=== PATIENT | male | born 1935 | race Caucasian/White ===

== ENCOUNTER 2017-06-10 18:01 | Inpatient (IN) | payer OTHER, MEDICARE ==
[~2017-06-10] VITALS: Ht 190.5 cm; Wt 100.7 kg
[2017-06-10 18:05] VITALS: BP 131/59
[2017-06-10 18:19] LABS: HEMATOCRIT 40.1 % (42.0-52.0); HEMOGLOBIN 13.3 gm/dL (14.0-18.0); MCH 28.6 pg (26.0-34.0); MCHC 33.1 g/dL (28.0-37.0); MCV 86.5 fL (80.0-100.0); MPV 7.2 fl. (7.2-11.1); NUCLEATED RBCS 0 /100WBC; PLATELET COUNT* 164 thou/uL (150-400); RBC 4.63 mil/uL (4.50-6.00); RDW-CV 15.7 % (10.5-14.5); WBC 7.8 thou/uL (4.0-11.0)
[2017-06-10 18:29] LABS: ANION GAP 8 mmol/L (7-16); APTT 29.9 Seconds (25.0-31.3); BUN 35 mg/dL (7-18); CALCIUM 9.2 mg/dL (8.5-10.1); CHLORIDE 105 mmol/L (98-107); CO2 29 mmol/L (21-32); CREATININE 1.4 mg/dL (0.6-1.3); GLUCOSE 156 mg/dL (70-99); INR 1.8; POTASSIUM 4.3 mmol/L (3.5-5.1); PROTIME 17.6 Seconds (9.20-11.50); SODIUM 142 mmol/L (136-145)
[2017-06-10 18:35] LABS: ALBUMIN 3.6 g/dL (3.4-5.0); ALKALINE PHOSPHATASE 47 U/L (46-116); LIPASE 891 U/L (73-393); SGOT 19 U/L (15-37); SGPT 17 U/L (30-65); TOTAL BILIRUBIN 1.7 mg/dL (<0.1-1.0); TOTAL PROTEIN 7.1 g/dL (6.4-8.2); TROPONIN-I LEVEL <0.06 ng/mL (<0.06)
[2017-06-10 18:47] LABS: ABSOLUTE EOSINOPHILS 0.3 thou/uL (0.0-0.7); ABSOLUTE LYMPHOCYTES 0.9 thou/uL (0.8-5.3); ABSOLUTE MONOCYTES 0.9 thou/uL (0.0-1.2); ABSOLUTE NEUTROPHILS 5.8 thou/uL (1.6-8.1); PLATELET ESTIMATE ADEQUATE
[2017-06-10] MEDS ORDERED: CARVEDILOL12.5 MG PO (19:44)
[2017-06-10] MEDS ORDERED: CHLORTHALIDONE25 MG PO (19:45)
[2017-06-10] MEDS ORDERED: NITROSTAT0.4 M1 SL (19:45)
[2017-06-10] MEDS ORDERED: SIMVASTATIN40 MG PO (19:46)
[2017-06-10] MEDS ORDERED: COUMADIN 4 MG TA4 M1 PO (19:48)
[2017-06-10] MEDS ORDERED: COUMADIN 5 MG TA5 M1 PO (19:49)
[2017-06-10] MEDS ORDERED: LISINOPRIL10 MG PO (19:50)
[2017-06-10 20:04] VITALS: BP 166/62
[2017-06-10 20:35] VITALS: BP 185/73
[2017-06-10 20:40] VITALS: BP 185/73
[2017-06-11] VITALS: BP 142/77
[2017-06-11 04:12] VITALS: BP 148/49
[2017-06-11 06:58] LABS: ABSOLUTE EOSINOPHILS 0.2 thou/uL (0.0-0.7); ABSOLUTE LYMPHOCYTES 0.5 thou/uL (0.8-5.3); ABSOLUTE MONOCYTES 0.9 thou/uL (0.0-1.2); ABSOLUTE NEUTROPHILS 4.9 thou/uL (1.6-8.1); BASOPHILS 0.4 %; EOSINOPHILS 2.5 %; HEMATOCRIT 37.3 % (42.0-52.0); HEMOGLOBIN 12.4 gm/dL (14.0-18.0); LYMPHOCYTES 7.4 %; MCH 28.8 pg (26.0-34.0); MCHC 33.1 g/dL (28.0-37.0); MCV 86.9 fL (80.0-100.0); MONOCYTES 13.6 %; MPV 7.3 fl. (7.2-11.1); NUCLEATED RBCS 0 /100WBC; PLATELET COUNT* 141 thou/uL (150-400); POLYS 76.1 %; RBC 4.29 mil/uL (4.50-6.00); RDW-CV 15.7 % (10.5-14.5); WBC 6.4 thou/uL (4.0-11.0)
[2017-06-11 07:04] LABS: CREATININE 1.6 mg/dL (0.6-1.3); POTASSIUM 4.3 mmol/L (3.5-5.1)
[2017-06-11 08:00] VITALS: BP 131/59
[2017-06-11 12:31] VITALS: BP 143/51
[2017-06-11 15:32] VITALS: BP 125/22
[2017-06-11 17:15] LABS: URINE BILIRUBIN NEGATIVE (Negative); URINE BLOOD 1+ (Negative); URINE CLARITY CLEAR; URINE COLOR YELLOW; URINE GLUCOSE-RANDOM NEGATIVE (Negative); URINE KETONES NEGATIVE (Negative); URINE LEUKOCYTES-REFLEX NEGATIVE (Negative); URINE NITRITE-REFLEX NEGATIVE (Negative); URINE PROTEIN NEGATIVE (Negative); URINE SPECIFIC GRAVITY >= 1.030 (1.005-1.030); URINE UROBILINOGEN 0.2 E.U./dl (0.2-1.0)
[2017-06-11 17:20] LABS: HYALINE CASTS >10 Many /LPF (None Seen); SQUAMOUS >10 Many /LPF (0-3)
[2017-06-11 17:21] LABS: CRYSTALS None Seen /LPF (None Seen); URINE RBC 3-10 Few /HPF (0-2); URINE WBC-REFLEX 0-5 Rare /HPF (0-5)
[2017-06-11 17:22] LABS: BACTERIA-REFLEX None Seen /HPF (None Seen); MUCUS >6 Heavy strn/LPF (None Seen)
[2017-06-11 20:00] VITALS: BP 135/47
[2017-06-12] VITALS: BP 125/44
[2017-06-12 04:00] VITALS: BP 108/54
[2017-06-12 05:42] LABS: HEMATOCRIT 34.4 % (42.0-52.0); HEMOGLOBIN 11.4 gm/dL (14.0-18.0); MCH 28.8 pg (26.0-34.0); MCHC 33.1 g/dL (28.0-37.0); MCV 87.3 fL (80.0-100.0); MPV 7.7 fl. (7.2-11.1); RBC 3.94 mil/uL (4.50-6.00); RDW-CV 15.7 % (10.5-14.5); WBC 5.7 thou/uL (4.0-11.0)
[2017-06-12 06:02] LABS: INR 2.1; PROTIME 20.7 Seconds (9.20-11.50)
[2017-06-12] MEDS ORDERED: IMDUR 30 MG TAB30 M1 PO (06:07)
[2017-06-12] MEDS ORDERED: ONGLYZA5 MG PO (06:09)
[2017-06-12 06:10] LABS: ANION GAP 9 mmol/L (7-16); BUN 39 mg/dL (7-18); CALCIUM 8.3 mg/dL (8.5-10.1); CHLORIDE 106 mmol/L (98-107); CO2 25 mmol/L (21-32); CREATININE 1.3 mg/dL (0.6-1.3); GLUCOSE 101 mg/dL (70-99); POTASSIUM 4.2 mmol/L (3.5-5.1); SODIUM 140 mmol/L (136-145)
[2017-06-12 06:22] LABS: CHOLESTEROL 137 mg/dL (<200); HDL CHOLESTEROL 35 mg/dL (>40); LDL CHOLESTEROL 84 mg/dL (<100); TC:HDL 3.9 Ratio (Not establshd); TRIGLYCERIDE 92 mg/dL (<150); VLDL 18 mg/dL (<40)
[2017-06-12 06:23] LABS: SERUM ASSESSMENT Clear
[2017-06-12 07:30] VITALS: BP 172/43
[2017-06-12 11:26] VITALS: BP 150/56
[2017-06-12 11:55] LABS: % SATURATION 13 % (20-39); IRON 31 ug/dL (50-175)
--- NOTE | 2017-06-12 15:55 | EKG ---
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 MCCABE : 1935 Requested By: Angel Luis Hernandez Order Number: [id number] MD: Bk Schmid Measurements Intervals [place] Rate: 47 P: [place]: QRS: 25 QRSD: 112 T: 78 QT: 498 QTc: 441 Interpretive Statements Atrial fibrillation Borderline intraventricular conduction delay Minimal ST depression, lateral leads No previous ECG available for comparison Electronically Signed On 06-12-2017 15:54:51 [employer] DEVELOPER by Bk Schmid [email or web address] <ELECTRONICALLY SIGNED> By: Francis Schmid MD, [facility] 06/12/17 1554 180 180 Francis Schmid MD, [facility] /EPI
[2017-06-12 16:04] VITALS: BP 155/46
[2017-06-12 20:00] VITALS: BP 159/47
[2017-06-13] VITALS (9 sets, daily range): BP systolic 121–195; BP diastolic 42–107
[2017-06-13 02:06] LABS: GLYCOHEMOGLOBIN (HGB A1C) 5.4 % (4.8-5.6)
[2017-06-13 05:32] LABS: PROTIME 19.7 Seconds (9.20-11.50)
--- NOTE | 2017-06-13 17:11 | 2DMMODE ---
[place] [address] 2 D/M-MODE ECHOCARDIOGRAM Name: LEENA SALINAS Room: [address] IN [facility]#: [id number] Admission: 06/10/17 Attend Phys: Kirsten Ramirez, Discharge: Date of : 33 Date of Service: 06/13/17 1711 Report #: [id number] THIS REPORT FOR: //name// APPROVED REPORT Study performed: 06/13/2017 13:24:37 EXAM: Comprehensive 2D, Doppler, and color-flow Echocardiogram Patient Location: In-Patient Room #: [facility] Status: routine BSA: 2.20 HR: 57 bpm BP: 165/52 mmHg Rhythm: Atrial Fibrillation Other Information Study Quality: Good Indications Atrial Fibrillation Syncope 2D Dimensions LVEF(%): 59.37 (>50%) IVSd: 14.11 (7-11mm) LVOT Diam: 21.40 (18-24mm) LVDd: 60.55 mm PWd: 11.08 (7-11mm) Ascending Ao: 37.14 (22-36mm) LVDs: 41.10 (25-40mm) Aortic Root: 38.05 mm Chung's LVEF: 59.37 % Volumes Left Atrial Volume (Systole) LA ESV Index: 37.50 mL/m2 Aortic Valve AoV Peak Andre.: 1.34 m/s AO Peak Gr.: 7.16 mmHg LVOT Max P.12 mmHg AO Mean Gr.: 3.98 mmHg LVOT Mean P.24 mmHg LVOT Max V: 0.73 m/s AO V2 VTI: 30.50 cm LVOT Mean V: 0.52 m/s CHANTEL (VTI): 2.16 cm2 LVOT V1 VTI: 18.30 [place] [address] 2 D/M-MODE ECHOCARDIOGRAM Name: LEENA SALINAS Room: [address] IN .R.#: [id number] Admission: 06/10/17 Attend Phys: Kirsten Ramirez, Discharge: Date of : 33 Date of Service: 06/13/17 1711 Report #: [id number] MV Decel. Time: 164.22 ms MV PHT: 47.62 ms MVA (PHT): 4.62 cm2 TDI Medial E' Andre.: 0.07 m/s Lateral E' Andre.: 0.11 m/s Pulmonary Valve PV Peak Andre.: 0.93 m/s PV Peak Gr.: 3.45 mmHg Left Ventricle The left ventricle is normal size. There is normal LV segmental wall motion. There is normal left ventricular wall thickness. Left ventricular systolic function is normal. The left ventricular ejection fraction is within the normal range. LVEF is 55%. This study is not technically sufficient to allow evaluation of the LV diastolic function due to atrial fibrillation. Right Ventricle The right ventricle is normal size. The right ventricular systolic function is normal. Atria Left atrium is mildly dilated. The right atrium size is normal. Aortic Valve The aortic prosthesis appears normal Mechanical aortic valve is present. No aortic regurgitation is present. There is no aortic valvular stenosis. Mitral Valve Mild mitral annular calcification. There is no mitral valve regurgitation noted. No evidence of mitral valve stenosis. Tricuspid Valve The tricuspid valve is normal in structure. Unable to assess PA pressure. Trace tricuspid regurgitation. Pulmonic Valve The pulmonary valve is normal in structure. Mild pulmonic regurgitation. Great Vessels The aortic root is normal in size. IVC [place] [address] 2 D/M-MODE ECHOCARDIOGRAM Name: LEENA SALINAS Room: [address] IN [facility]#: [id number] Admission: 06/10/17 Attend Phys: Kirsten Ramirez, Discharge: Date of : 33 Date of Service: 06/13/17 1711 Report #: [id number] collapses with >50% inspiration Pericardium There is no pericardial effusion. Left pleural effusion. <Conclusion> The left ventricle is normal size. There is normal left ventricular wall thickness. Left ventricular systolic function is normal. The left ventricular ejection fraction is within the normal range. LVEF is 55%. The right ventricle is normal size. Left atrium is mildly dilated. The aortic prosthesis appears normal There is no aortic valvular stenosis. Mild mitral annular calcification. There is no mitral valve regurgitation noted. No evidence of mitral valve stenosis. IVC is normal in size and collapses with >50% inspiration There is no pericardial effusion. There is normal LV segmental wall motion. <ELECTRONICALLY SIGNED> By: Boris Bhardwaj MD, FACC 06/13/17 171 10 10 Boris Bhardwaj MD, FACC /INF
--- NOTE | 2017-06-13 18:20 | CARDNUC ---
[place] [address] CARDIAC NUCLEAR IMAGING REPORT Name: LEENA SALINAS Room: [address] IN [facility]#: [id number] Admission: 06/10/17 Attend Phys: Kirsten Ramirez, Discharge: Date of : 33 Date of Service: 06/13/17 1819 Report #: [id number] THIS REPORT FOR: //name// APPROVED REPORT Exam: Nuclear Stress Test Indication: Syncope Patient Location: In-Patient Room #: 205 Stress Tech: Anne Mendez Stress Nurse: Yoli Cali RN Ht: 6 ft 3 in Wt: 228 lbs BSA: 2.32 m2 BMI: 28.49 Medical History Medical History: CAD s/p CABG, CAD s/p stent, Valvular heart disease, Atrial Fibrillation, COPD Medications: asa, warfarin, atorvastatin, coreg, hydralazine, isosorbide, nifedipine, lisinopril Allergies: morphine, promethazine, meperidine Cardiac Risk Factors: Age, DM, HTN, Hyperlipidemia Previous Cardiac Procedures: CABG, AVR, PCI Exercise History: Sedentary Meds Held (24 hrs): isosorbide Meds Held (48 hrs): coreg Stress Test Details Stress Test: Pharmacologic stress testing performed using 0.4 mg of regadenoson per 5 mL given IV over 10 seconds. Reason for pharmacologic stress test: physical limitation. HR Resting HR: 65 bpm Max Heart Rate (APMHR): 138 bpm Max HR Achieved: 84 bpm Target HR (85% APMHR): 117 bpm % of APMHR: 60 Recovery HR: 74 bpm BP Resting BP: 152/64 mmHg Max BP: 138/54 mmHg ECG Resting ECG: Atrial Fibrillation Stress ECG: [place] [address] CARDIAC NUCLEAR IMAGING REPORT Name: LEENA SALINAS Room: [address]#: [id number] Admission: 06/10/17 Attend Phys: Kirsten Ramirez, Discharge: Date of : 33 Date of Service: 06/13/17 1819 Report #: [id number] Change: None Arrhythmia: None Recovery ECG: Atrial Fibrillation Recovery ST Change: None Recovery Arrhythmia: None Clinical Reason for Termination: Completed protocol Stress Symptoms: Chest pain Exercise duration: 0 min sec Exercise capacity: 1.0 METs The patient had mild chest pressure with Lexiscan infusion that resolved in recovery. Nurse Comments Patient complained of chest pressure post lexiscan, rated 9, resolved in recovery. Stress ECG Conclusion The baseline 12-lead EKG shows atrial fibrillation with a controlled ventricular response rate. EKGs obtained during and post Lexiscan infusion show atrial fibrillation with no significant ST or T wave changes when compared to baseline. There were no other stress-induced arrhythmias. NM EXAM: Myocardial Perfusion REST/STRESS Imaging Protocol: Rest Tc-99m/Stress Tc-99m 1 day Resting Data Rest SPECT myocardial perfusion imaging was performed in supine position 30 minutes following the intravenous injection of 10.7 mCi of Tc-99m Sestamibi. Time of rest injection: 1325 Time of rest imagin The images were gated to evaluate regional wall motion and calculate left ventricular ejection fraction. Administration Route: IV Administration Site: Left AC Pharmacologic Stress Pharmacologic stress test was performed by injecting Regadenoson 0.4 mg IV push followed by the intravenous injection of 31.6 mCi of Tc-99m Sestamibi. Time of stress injection: 1600 Time of stress imagin Administration Route: [place] [address] CARDIAC NUCLEAR IMAGING REPORT Name: LEENA SALINAS Room: [address]#: [id number] Admission: 06/10/17 Attend Phys: Kirsten Ramirez, Discharge: Date of : 33 Date of Service: 06/13/17 1819 Report #: [id number] Administration Site: Left AC Heart Rate at time of stress injection: 84 bpm. Gated Stress SPECT was performed 40 minutes after stress injection. The images were gated to evaluate regional wall motion and calculate left ventricular ejection fraction. Study Quality Study: Good Artifact: No artifact Study Data At rest, the left ventricular ejection fraction was 61%.. Post stress, the left ventricular ejection was 59%.. TID = 0.97. Perfusion There is a moderate size fixed basal inferior defect. No other significant defects are identified. Wall Motion The basal portion the inferior wall is severely hypokinetic. Remaining jc appear to move normally. Nuclear Conclusion ECG Findings: negative for ischemia Clinical Findings: equivocal Nuclear Findings: negative for ischemia Exercise Capacity: not assessed Left Ventricular Function: preserved There is a fixed defect involving the basal portion the inferior wall consistent with prior infarct. Ears no evidence of stress-induced ischemia. Overall left ventricular systolic function appears to be fairly well-preserved. This is not a high risk study. <Conclusion> The baseline 12-lead EKG shows atrial fibrillation with a controlled ventricular response rate. EKGs obtained during and post Lexiscan infusion show atrial fibrillation with no significant ST or T wave changes when compared to baseline. There were no other stress-induced arrhythmias. <ELECTRONICALLY SIGNED> By: Juan Ramirez MD, FACC 06/13/171818 18 18 Juan Ramirez MD, FACC /INF
[2017-06-14 03:43] VITALS: BP 126/36
[2017-06-14 06:07] LABS: INR 2.1; PROTIME 20.4 Seconds (9.20-11.50)
[2017-06-14 08:00] VITALS: BP 145/54
[2017-06-14] MEDS ORDERED: IRON325 PO (08:20)
[2017-06-14] MEDS ORDERED: PROCARDIA XL60 MG PO (08:21)
[2017-06-14] MEDS ORDERED: LEVAQUIN 500 M500 M2 PO (08:22)
[2017-06-14 11:30] VITALS: BP 133/70
--- NOTE | 2017-06-14 15:01 | CON ---
[address] [address] CONSULTATION Name: LEENA SALINAS Room: [address] IN M.R.#: [id number] Admission: 06/10/17 Attend Phys: Kirsten Ramirez MD Discharge: Date of : 33 Report #: [id number] THIS REPORT FOR: //name// CC: [facility] physician/PCP Kirsten Ramirez HISTORY OF PRESENT ILLNESS: I was asked by Dr. Kirsten Ramirez to see this 81-year-old white male in Cardiology consultation for evaluation and treatment of syncope. This man has chronic atrial fibrillation. He came in having passed out in his kitchen. He was only out for a few seconds and got up fairly quickly according to his . There was no prodrome. He was not incontinent of stool or urine. He has been noted to be quite bradycardic since he had this event with heart rates in the 40s. He is on a substantial dose of beta-shekhar that is Coreg 12.5 mg twice a day. The Coreg has been held and his heart rate seems to be coming up a bit. Additionally, this man has known coronary artery disease, is status post 4 coronary stents. I believe that was in 2014 at [facility]. He had bypass graft surgery and previous aortic valve replacement in [address] [facility] [address] Patel. He used to see Dr. Whittington there. 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 He did not have any chest pain with this event. He did not feel palpitations. He generally has some dyspnea on exertion, but not orthopnea, PND or edema. He has passed out in the past he says due to low blood sugar. He is on saxagliptin. His coronary risk factors include past history of smoking. He no longer smokes. He denies hypercholesterolemia, although he is on a statin. He does have diabetes. He does have high blood pressures, family history of coronary heart disease. He does not have kidney problems or problems with his carotids. He does not have claudication or open or nonhealing wounds. Also, he does have a history of kidney stones. PAST MEDICAL HISTORY: As described above. MEDICATIONS: Include carvedilol 12.5 mg twice a day, chlorthalidone 25 mg twice a day, lisinopril either 10 or 20 mg daily, it is not clear. He also takes p.r.n. nitroglycerin. He is on warfarin 6 mg daily, simvastatin 40 mg daily and isosorbide 30 mg daily. ALLERGIES: HE IS ALLERGIC TO MORPHINE, PROMETHAZINE AND DEMEROL. REVIEW OF SYSTEMS: Positive for weight loss, erectile dysfunction, emphysema, chest discomfort, shortness of breath with exercise, nearly passing out, history of a heart murmur, diabetes, blood in the stool, painful burning urination, blood in the urine, bleeding disorder, seasonal allergies, medical allergies, rash, hives, chronic skin condition, wears glasses, decreased hearing, bleeding from the nose and wearing dentures. SOCIAL HISTORY: He is , does not smoke, drink or [place] [address] CONSULTATION Name: LEENA SALINAS Room: [address] IN ..#: [id number] Admission: 06/10/17 Attend Phys: Kirsten Ramirez MD Discharge: Date of : 33 Report #: [id number] is retired. PHYSICAL EXAMINATION: GENERAL: He presents as a well-developed, well-nourished white male in no acute distress. VITAL SIGNS: Pulse was about 48 when I examined him. Blood pressure is 140/49, respirations are 18 and regular, temperature is 97.7. HEENT: His head is atraumatic. Eyes clear. Mucous membranes are moist. NECK: Supple. There is no jugular venous distention or hepatojugular reflux. Thyroid is not enlarged. There is no adenopathy. SKIN: Warm and dry. LUNGS: Clear to auscultation and percussion. HEART: Revealed normal first and second heart sound. There is no S4. There is no S3. There are no murmurs, rubs, thrills, heaves or gallops. PMI is nondisplaced. Rhythm was irregularly irregular, rate was approximately 48. PMI is not displaced. ABDOMEN: Soft, flat, nontender, no palpable masses. There is no organomegaly. EXTREMITIES: Reveal no cyanosis, clubbing or edema. NEUROLOGIC: The patient mentated normally, talked normally, moved all extremities normally. IMPRESSION: 1. Syncope. This is likely secondary to bradycardia and hypotension due to his beta-shekhar. 2. Atrial fibrillation with a slow ventricular response. 3. Coronary artery disease. 4. Status post 4 coronary stents. 5. Status post coronary bypass graft surgery. 6. Status post aortic valve replacement. 7. Asbestosis. 8. Chronic obstructive pulmonary disease. 9. Non-insulin dependent diabetes mellitus. 10. Essential hypertension. 11. Hyperlipidemia. RECOMMENDATION: He should have an echo, carotid Dopplers and a nuclear stress test. He should have his beta-shekhar reduced and his warfarin adjusted. If his heart rate does not come up in spite of marked decrease in his beta-shekhar or stopping his beta-shekhar, then consideration for pacemaker [place] [address] CONSULTATION Name: LEENA SALINAS Room: [address] ADM IN M.R.#: [id number] Admission: 06/10/17 Attend Phys: Kirsten Ramirez MD Discharge: Date of : 34 Report #: [id number] Thank you very much for asking me to see the patient. If any questions, please feel free to contact me. <ELECTRONICALLY SIGNED> By: Francis Schmid MD, FACC 06/14/17 1501 1244 [id number]. Bk Schmid MD, FACC /nt
[2017-06-14 15:30] VITALS: BP 146/58
[2017-06-14 18:01] VITALS: BP 133/70
== END 2017-06-14 19:00 | disposition home or self-care (01) | DRG 682 ==
LOC: M.ERS 18:01 → M.TBA-ER 18:40 → M.2W 18:40
PROVIDERS: Family Medicine; Internal Medicine; ADMIT Internal Medicine
DX: N17.1 Acute kidney failure with acute cortical necrosis (principal); J13 Pneumonia due to Streptococcus pneumoniae; I65.29 Occlusion and stenosis of unspecified carotid artery; R00.1 Bradycardia, unspecified; I48.91 Unspecified atrial fibrillation; G89.29 Other chronic pain; J44.9 Chronic obstructive pulmonary disease, unspecified; M48.00 Spinal stenosis, site unspecified; D64.9 Anemia, unspecified; E78.5 Hyperlipidemia, unspecified; E11.22 Type 2 diabetes mellitus with diabetic chronic kidney disease; I25.10 Atherosclerotic heart disease of native coronary artery without angina pectoris; I12.9 Hypertensive chronic kidney disease with stage 1 through stage 4 chronic kidney disease, or unspecified chronic kidney disease; F17.210 Nicotine dependence, cigarettes, uncomplicated; Y99.8 Other external cause status; Y92.89 Other specified places as the place of occurrence of the external cause; Y93.89 Activity, other specified; X58.XXXA Exposure to other specified factors, initial encounter; S00.01XA Abrasion of scalp, initial encounter; J61 Pneumoconiosis due to asbestos and other mineral fibers; N18.3 Chronic kidney disease, stage 3 (moderate); Z88.8 Allergy status to other drugs, medicaments and biological substances; Z79.01 Long term (current) use of anticoagulants; Z95.1 Presence of aortocoronary bypass graft; Z87.442 Personal history of urinary calculi; Z95.5 Presence of coronary angioplasty implant and graft; Z79.4 Long term (current) use of insulin

== ENCOUNTER 2019-08-15 13:47 | Emergency (ER) | payer OTHER ==
[~2019-08-15] VITALS: Ht 190.5 cm; Wt 81.7 kg
[~2019-08-15 13:47] MED LIST: CARVEDILOL12.5 MG PO; CHLORTHALIDONE25 MG PO; COUMADIN 4 MG TA4 M1 PO; COUMADIN 5 MG TA5 M1 PO; IMDUR 30 MG TAB30 M1 PO; IRON325 PO; LEVAQUIN 500 M500 M2 PO; LISINOPRIL10 MG PO; NITROSTAT0.4 M1 SL; ONGLYZA5 MG PO; PROCARDIA XL60 MG PO; SIMVASTATIN40 MG PO
[2019-08-15] MEDS ORDERED: COUMADIN7.5 MG PO (14:18)
[2019-08-15] MEDS ORDERED: CRESTOR5 MG PO (14:19)
[2019-08-15] MEDS ORDERED: ALOGLIPTIN25 MG PO (14:20)
[2019-08-15 14:59] LABS: ABSOLUTE EOSINOPHILS 0.1 thou/uL (0.0-0.7); ABSOLUTE LYMPHOCYTES 0.4 thou/uL (0.8-5.3); ABSOLUTE MONOCYTES 0.4 thou/uL (0.0-1.2); BASOPHILS 0.8 %; EOSINOPHILS 2.8 %; HEMATOCRIT 34.6 % (42.0-52.0); HEMOGLOBIN 11.7 gm/dL (14.0-18.0); LYMPHOCYTES 13.6 %; MCHC 33.9 g/dL (28.0-37.0); MCV 82.7 fL (80.0-100.0); MONOCYTES 14.3 %; MPV 7.2 fl. (7.2-11.1); NUCLEATED RBCS 0 /100WBC; PLATELET COUNT* 141 thou/uL (150-400); POLYS 68.5 %; RBC 4.18 mil/uL (4.50-6.00); RDW-CV 15.9 % (10.5-14.5); WBC 2.9 thou/uL (4.0-11.0)
[2019-08-15 15:07] LABS: CALCIUM 8.1 mg/dL (8.5-10.1); POTASSIUM 4.5 mmol/L (3.5-5.1)
[2019-08-15 15:11] LABS: ALBUMIN 3.2 g/dL (3.4-5.0); MAGNESIUM 1.9 mg/dL (1.8-2.4); TOTAL BILIRUBIN 1.3 mg/dL (<0.1-1.0); TOTAL PROTEIN 6.3 g/dL (6.4-8.2)
[2019-08-15 15:56] LABS: URINE BILIRUBIN NEGATIVE (Negative); URINE BLOOD NEGATIVE (Negative); URINE CLARITY CLEAR; URINE COLOR YELLOW; URINE GLUCOSE-RANDOM NEGATIVE (Negative); URINE KETONES NEGATIVE (Negative); URINE LEUKOCYTES-REFLEX NEGATIVE (Negative); URINE NITRITE-REFLEX NEGATIVE (Negative); URINE PROTEIN TRACE (Negative); URINE SPECIFIC GRAVITY 1.015 (1.005-1.030)
--- NOTE | 2019-08-15 15:57 | EKG ---
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1935 Requested By: Lesley Gutierrez Order Number: [id number] Reading MD: Jesús Whittington Measurements Intervals [place] Rate: 92 P: [place]: QRS: 26 QRSD: 106 T: 82 QT: 402 QTc: 498 Interpretive Statements Atrial fibrillation Ventricular bigeminy Minimal ST depression, lateral leads Compared to ECG 06/10/2017 18:06:40 Ventricular premature complex(es) now present ST (T wave) deviation still present Electronically Signed On 08-15-2019 15:56:29 CDT by Jesús Whittington [email or web address] <ELECTRONICALLY SIGNED> By: Jesús Whittington MD, FACC 08/15/19 1556 1351 1351 Jesús Whittington MD, [facility] /EPI
[2019-08-15 17:45] VITALS: BP 162/74
== END 2019-08-15 17:45 | disposition home or self-care (01) ==
LOC: M.ERS 13:47
PROVIDERS: Personal Emergency Response Attendant
DX: R53.1 Weakness (principal); R00.1 Bradycardia, unspecified; R42 Dizziness and giddiness; E78.5 Hyperlipidemia, unspecified; I25.10 Atherosclerotic heart disease of native coronary artery without angina pectoris; I10 Essential (primary) hypertension; Z87.891 Personal history of nicotine dependence; Z88.5 Allergy status to narcotic agent; Z88.8 Allergy status to other drugs, medicaments and biological substances; Z87.442 Personal history of urinary calculi

== ENCOUNTER 2019-11-21 10:36 | Emergency (ER) | payer OTHER ==
[~2019-11-21] VITALS: Ht 190.5 cm; Wt 79.4 kg
[~2019-11-21 10:36] MED LIST changes: +ALOGLIPTIN25 MG PO; +COUMADIN7.5 MG PO; +CRESTOR5 MG PO
[2019-11-21] MEDS ORDERED: HYDROCHLOROTHIA25 M2 PO (10:47)
[2019-11-21 11:00] LABS: ABSOLUTE EOSINOPHILS 0.1 thou/uL (0.0-0.7); ABSOLUTE LYMPHOCYTES 0.4 thou/uL (0.8-5.3); ABSOLUTE MONOCYTES 0.6 thou/uL (0.0-1.2); ABSOLUTE NEUTROPHILS 4.2 thou/uL (1.6-8.1); BASOPHILS 0.8 %; EOSINOPHILS 1.9 %; HEMATOCRIT 34.2 % (42.0-52.0); HEMOGLOBIN 11.2 gm/dL (14.0-18.0); MCH 26.3 pg (26.0-34.0); MCHC 32.9 g/dL (28.0-37.0); MONOCYTES 11.6 %; MPV 6.6 fl. (7.2-11.1); NUCLEATED RBCS 0 /100WBC; PLATELET COUNT* 181 thou/uL (150-400); POLYS 78.7 %; RBC 4.28 mil/uL (4.50-6.00); RDW-CV 16.7 % (10.5-14.5); WBC 5.4 thou/uL (4.0-11.0)
[2019-11-21 11:11] LABS: CALCIUM 8.3 mg/dL (8.5-10.1); POTASSIUM 3.9 mmol/L (3.5-5.1)
[2019-11-21 11:13] LABS: APTT 38.3 Seconds (25.0-31.3); INR 3.1; PROTIME 30.3 Seconds (9.20-11.50)
[2019-11-21 11:16] LABS: ALBUMIN 3.3 g/dL (3.4-5.0); TOTAL PROTEIN 6.9 g/dL (6.4-8.2)
[2019-11-21 13:25] VITALS: BP 213/78
== END 2019-11-21 13:18 | disposition home or self-care (01) ==
LOC: M.ERS 10:36
PROVIDERS: Family Medicine
DX: S00.83XA Contusion of other part of head, initial encounter (principal); S20.411A Abrasion of right back wall of thorax, initial encounter; M25.562 Pain in left knee; M25.561 Pain in right knee; I10 Essential (primary) hypertension; E78.5 Hyperlipidemia, unspecified; M19.90 Unspecified osteoarthritis, unspecified site; Z87.442 Personal history of urinary calculi; Z90.49 Acquired absence of other specified parts of digestive tract; Z87.891 Personal history of nicotine dependence; Z88.6 Allergy status to analgesic agent; Z88.8 Allergy status to other drugs, medicaments and biological substances; W01.0XXA Fall on same level from slipping, tripping and stumbling without subsequent striking against object, initial encounter; Y93.9 Activity, unspecified; Y92.89 Other specified places as the place of occurrence of the external cause; Y99.8 Other external cause status

== ENCOUNTER 2020-03-24 15:59 | Inpatient (IN) | payer OTHER ==
[~2020-03-24] VITALS: Ht 190.5 cm; Wt 72.0 kg
[~2020-03-24 15:59] MED LIST changes: +HYDROCHLOROTHIA25 M2 PO
[2020-03-24 16:05] VITALS: BP 161/70
[2020-03-24 17:00] LABS: HEMOGLOBIN 12.6 gm/dL (14.0-18.0); MCH 25.7 pg (26.0-34.0); MCHC 32.3 g/dL (28.0-37.0); MCV 79.4 fL (80.0-100.0); MPV 7.5 fl. (7.2-11.1); NUCLEATED RBCS 0 /100WBC; PLATELET COUNT* 123 thou/uL (150-400); RBC 4.91 mil/uL (4.50-6.00); RDW-CV 16.5 % (10.5-14.5); WBC 9.3 thou/uL (4.0-11.0)
[2020-03-24 17:08] LABS: CALCIUM 8.3 mg/dL (8.5-10.1); CREATININE 1.2 mg/dL (0.6-1.3); POTASSIUM 3.6 mmol/L (3.5-5.1)
[2020-03-24 17:13] LABS: ALBUMIN 2.8 g/dL (3.4-5.0); TOTAL BILIRUBIN 1.2 mg/dL (<0.1-1.0); TOTAL PROTEIN 6.8 g/dL (6.4-8.2)
[2020-03-24 17:38] LABS: ABSOLUTE LYMPHOCYTES 0.3 thou/uL (0.8-5.3); ABSOLUTE MONOCYTES 0.4 thou/uL (0.0-1.2); ABSOLUTE NEUTROPHILS 8.6 thou/uL (1.6-8.1); ANISOCYTOSIS 1+; OVALOCYTES Occasional; PLATELET ESTIMATE ADEQUATE
[2020-03-24 18:50] LABS: APTT 42.5 Seconds (25.0-31.3); INR 2.7; PROTIME 27.1 Seconds (9.20-11.50)
[2020-03-24 20:00] VITALS: BP 129/55; BP 148/89
[2020-03-25] VITALS: BP 158/56
[2020-03-25 04:00] VITALS: BP 173/71
--- NOTE | 2020-03-25 09:15 | NUR ---
CM ATTEMPTED TO CONTACT THE PT VIA THE HOSPITAL ROOM PHONE TO DISCUSS CM ASSESSMENT, THE PT IS CURRENTLY UNDER ENHANCED PRECAUTIONS DUE TO BEING COVID POSITIVE. NO ANSWER. CM CONTACTED PT'S SPOUSE AND SHE ASSIST WITH ANSWERING CM ASSESSMENT. PT'S SPOUSE INFORMS THAT THE PT IS NORMALLY A&O, AND INDEPENDENT WITH ADL'S. PT RESIDES AT HOME WITH SPOUSE AND DON. PT OWNS A WALKER AND CANE, BUT DID NOT USE EITHER PRIOR TO ADMIT. PT HAS 0 HX OF HH OR SNF. CM WILL REMAIN AVAILABLE TO ASSIST WITH D/C PLANNING.
[2020-03-25 12:00] VITALS: BP 146/87
[2020-03-25 16:00] VITALS: BP 198/76
[2020-03-26] VITALS: BP 156/77
[2020-03-26 04:30] VITALS: BP 185/77
[2020-03-26 05:39] LABS: ABSOLUTE LYMPHOCYTES 0.1 thou/uL (0.8-5.3); ABSOLUTE MONOCYTES 0.1 thou/uL (0.0-1.2); BASOPHILS 0.2 %; HEMATOCRIT 35.2 % (42.0-52.0); HEMOGLOBIN 11.4 gm/dL (14.0-18.0); LYMPHOCYTES 5.8 %; MCHC 32.4 g/dL (28.0-37.0); MCV 80.1 fL (80.0-100.0); MPV 7.5 fl. (7.2-11.1); NUCLEATED RBCS 0 /100WBC; PLATELET COUNT* 115 thou/uL (150-400); RBC 4.39 mil/uL (4.50-6.00); RDW-CV 16.1 % (10.5-14.5); WBC 2.3 thou/uL (4.0-11.0)
[2020-03-26 05:49] LABS: INR 3.6; PROTIME 35.2 Seconds (9.20-11.50)
[2020-03-26 05:55] LABS: ALBUMIN 2.5 g/dL (3.4-5.0); ALKALINE PHOSPHATASE 36 U/L (46-116); ANION GAP 12 mmol/L (7-16); BUN 40 mg/dL (7-18); CHLORIDE 106 mmol/L (98-107); CO2 24 mmol/L (21-32); CREATININE 1.1 mg/dL (0.6-1.3); GLUCOSE 211 mg/dL (70-99); POTASSIUM 3.7 mmol/L (3.5-5.1); SGOT 30 U/L (15-37); SGPT 22 U/L (30-65); SODIUM 142 mmol/L (136-145); TOTAL BILIRUBIN 0.8 mg/dL (<0.1-1.0); TOTAL PROTEIN 6.3 g/dL (6.4-8.2); TROPONIN-I LEVEL <0.06 ng/mL (<0.06)
--- NOTE | 2020-03-26 07:32 | NUR ---
PATIENT HAS SLEPT WELL THROUGHOUT THE NIGHT. VSS ON 2L 02, ALTHOUGH BP ELEVATED AND BLOOD PRESSURE MEDICATION GIVEN THIS AM VIA IV. PATIENT UP SBA. PATIENT REMAINS ON ENHANCED ISOLATION PRECAUTIONS D/T COVID-19. MEDICATIONS GIVEN ORDERED AND CHARTED. IV IN LEFT FOREARM-SL. PATIENT INSTRUCTED TO USE CALL LIGHT WHEN NEEDING ASSISTANCE. HOURLY ROUNDS MADE. WILL CONTINUE WITH PLAN OF CARE AND NURSING TO MONITOR.
[2020-03-26 08:04] VITALS: BP 159/50
--- NOTE | 2020-03-26 09:29 | NUR ---
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 PLACE ORDERED, TRACING A-FIB- UPON ASSESSMENT PT NOTED TO BE RESTING IN BED- PT A&O X4, FORGETFULL- CONT OF B/B- SBA WITH CANE FOR TRANSFERS- LCTA/DIMISHED IN BASES, DYSPNEA NOTED ON EXERTION- VSS, O2 SAT NOTED AT 87-88, O2 APPLIED AT 3L TO INCREASE TO 90-91% THIS AM- ABD SOFT/ROUND/NON-TENDER, BS X4 QUADS- LAST BM REPORTED X3 DAYS AGO- IV NOTED TO LEFT FA INTACT AND SL- SET UP ASSIST WITH MEALS, FAIR PO INTAKE NOTED THIS AM- BS MONITORED ORDERED- PT DENIES ANY C/O PAIN/DISCOMFORT AT THIS TIME- CALL LIGHT AND PERSONAL BELONGINGS WITH IN REACH- ISO IN PLACE AND MAINTAINED R/T POSITIVE COVID- HOURLY ROUNDS IN PLACE R/T SAFETY/NEEDS- ALL NEEDS MET AT THIS TIME-WCTM
[2020-03-26 12:00] VITALS: BP 155/60
[2020-03-26 12:06] LABS: HEMATOCRIT 35.5 % (42.0-52.0); HEMOGLOBIN 11.4 gm/dL (14.0-18.0); MCH 25.6 pg (26.0-34.0); MCHC 32.1 g/dL (28.0-37.0); MCV 79.6 fL (80.0-100.0); MPV 7.7 fl. (7.2-11.1); RBC 4.46 mil/uL (4.50-6.00); RDW-CV 16.1 % (10.5-14.5); WBC 3.8 thou/uL (4.0-11.0)
--- NOTE | 2020-03-26 13:35 | 2DMMODE ---
[place] [address] 2 D/M-MODE ECHOCARDIOGRAM Name: LEENA SALINAS Room: [address] IN .R.#: [id number] Admission: 03/24/20 Attend Phys: Germain Dillon, Discharge: Date of : 33 Date of Service: 03/26/20 1334 Report #: [id number] THIS REPORT FOR: cc: Val Zepeda MD, Avan D. MD Holkins,Boris Loera MD [facility] ~ APPROVED REPORT Study performed: 03/26/2020 09:34:54 EXAM: Comprehensive 2D, Doppler, and color-flow Echocardiogram Patient Location: Bedside BSA: 1.96 HR: 72 bpm BP: 173/71 mmHg Other Information Study Quality: Adequate Indications Aortic Valve Disease Prosthetic Valve Atrial Fibrillation CAD Elevated Troponin Covid Positive 2D Dimensions IVSd: 15.46 (7-11mm) LVOT Diam: 15.67 (18-24mm) LVDd: 39.44 mm PWd: 10.72 (7-11mm) Ascending Ao: 34.95 (22-36mm) LVDs: 23.42 (25-40mm) Aortic Root: 35.49 mm Volumes Left Atrial Volume (Systole) LA ESV Index: 42.50 mL/m2 Aortic Valve AoV Peak Andre.: 1.22 m/s AO Peak Gr.: 5.98 mmHg LVOT Max P.69 mmHg AO Mean Gr.: 3.61 mmHg LVOT Mean P.98 mmHg LVOT Max V: 0.96 m/s [address] [address] 2 D/M-MODE ECHOCARDIOGRAM Name: LEENA SALINAS Room: [address]#: [id number] Admission: 03/24/20 Attend Phys: Germain Dillon, Discharge: Date of : 33 Date of Service: 03/26/20 1334 Report #: [id number] AO V2 VTI: 26.54 cm LVOT Mean V: 0.63 m/s CHANTEL (VTI): 1.27 cm2 LVOT V1 VTI: 17.45 cm Mitral Valve E/A Ratio: 3.00 MV Decel. Time: 187.19 ms MV E Max Andre.: 1.00 m/s MV PHT: 54.28 ms MVA (PHT): 4.05 cm2 Pulmonary Valve PV Peak Andre.: 1.03 m/s PV Peak Gr.: 4.22 mmHg Left Ventricle The left ventricle is normal size. There is normal LV segmental wall motion. There is normal left ventricular wall thickness. Left ventricular systolic function is normal. The left ventricular ejection fraction is within the normal range. LVEF is 55%. This study is not technically sufficient to allow evaluation of the LV diastolic function due to atrial fibrillation. Right Ventricle The right ventricle is normal size. The right ventricular systolic function is normal. Atria Left atrium is moderately dilated. The right atrium size is normal. Aortic Valve Mild aortic valve sclerosis. Mechanical aortic valve is present. No aortic regurgitation is present. No hemodynamically significant valvular aortic stenosis. Mitral Valve Moderate mitral annular calcification. There is no mitral valve regurgitation noted. No evidence of mitral valve stenosis. Tricuspid Valve The tricuspid valve is normal in structure. There is no tricuspid valve regurgitation noted. Pulmonic Valve The pulmonary valve is normal in structure. There is no pulmonic [place] [address] 2 D/M-MODE ECHOCARDIOGRAM Name: LEENA SALINAS Room: [address] IN [facility].#: [id number] Admission: 03/24/20 Attend Phys: Germain Dillon, Discharge: Date of : 33 Date of Service: 03/26/20 1334 Report #: [id number] Great Vessels The aortic root is normal in size. Aortic arch is not visualized. IVC is not visualized. Pericardium There is no pericardial effusion. Pleural effusion is present. <Conclusion> There is normal left ventricular wall thickness. Left ventricular systolic function is normal. The left ventricular ejection fraction is within the normal range. LVEF is 55%. This study is not technically sufficient to allow evaluation of the LV diastolic function due to atrial fibrillation. The right ventricle is normal size. Left atrium is moderately dilated. Mild aortic valve sclerosis. No aortic regurgitation is present. No hemodynamically significant valvular aortic stenosis. Moderate mitral annular calcification. There is no mitral valve regurgitation noted. No evidence of mitral valve stenosis. The tricuspid valve is normal in structure. There is no pericardial effusion. There is normal LV segmental wall motion. Mechanical aortic valve is present. <ELECTRONICALLY SIGNED> By: Boris Bhardwaj MD, FACC 03/26/20 1334 1334 1334 Boris Bhardwaj MD, FACC /INF
--- NOTE | 2020-03-26 13:38 | EKG ---
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1935 Requested By: Ekaterina Malave Order Number: [id number] MD: Boris Bhardwaj Measurements Intervals [place] Rate: 65 P: [place]: QRS: 41 QRSD: 107 T: 71 QT: 412 QTc: 429 Interpretive Statements Atrial fibrillation Ventricular premature complex Probable LVH with secondary repol abnrm Compared to ECG 08/15/2019 13:51:05 ST (T wave) deviation no longer present Electronically Signed On 03-26-2020 13:38:09 CDT by Boris Bhardwaj [email or web address] <ELECTRONICALLY SIGNED> By: Boris Bhardwaj MD, FACC 03/26/20 1338 1648 Boris Bhardwaj MD, FACC /EPI
[2020-03-26 16:00] VITALS: BP 167/76
[2020-03-26 21:30] VITALS: BP 165/71
[2020-03-27] VITALS (7 sets, daily range): BP systolic 151–178; BP diastolic 55–76
[2020-03-27 05:32] LABS: ABSOLUTE LYMPHOCYTES 0.2 thou/uL (0.8-5.3); ABSOLUTE MONOCYTES 0.2 thou/uL (0.0-1.2); BASOPHILS 0.1 %; HEMATOCRIT 34.8 % (42.0-52.0); HEMOGLOBIN 11.6 gm/dL (14.0-18.0); MCH 26.2 pg (26.0-34.0); MCHC 33.4 g/dL (28.0-37.0); MCV 78.6 fL (80.0-100.0); MONOCYTES 3.8 %; MPV 7.7 fl. (7.2-11.1); NUCLEATED RBCS 0 /100WBC; PLATELET COUNT* 168 thou/uL (150-400); POLYS 93.1 %; RBC 4.43 mil/uL (4.50-6.00); RDW-CV 16.2 % (10.5-14.5); WBC 5.4 thou/uL (4.0-11.0)
[2020-03-27 05:33] LABS: INR 3.7; PROTIME 35.7 Seconds (9.20-11.50)
[2020-03-27 05:45] LABS: ALBUMIN 2.6 g/dL (3.4-5.0); CALCIUM 7.9 mg/dL (8.5-10.1); CREATININE 1.1 mg/dL (0.6-1.3); MAGNESIUM 2.2 mg/dL (1.8-2.4); POTASSIUM 3.7 mmol/L (3.5-5.1); TOTAL BILIRUBIN 0.7 mg/dL (<0.1-1.0); TOTAL PROTEIN 6.2 g/dL (6.4-8.2)
[2020-03-27 06:06] LABS: GLYCOHEMOGLOBIN (HGB A1C) 5.9 % (4.8-5.6)
--- NOTE | 2020-03-27 15:46 | NUR ---
CM INFORMED DURING PRIME ROUNDING OF THE PLAN OF CARE FOR THE PT INCLUDING PLAN FOR THE PT TO CONTINUE I.V. ABT'S. PT/OT EVALS ORDERED. POSSIBLE THAT PT MAT NEED HH AT D/C. CM WILL REMAIN AVAILABLE TO ASSIST AND FOLLOW NEEDED.
--- NOTE | 2020-03-27 20:01 | NUR ---
ASSESSMENT DOCUMENTED. MEDS GIVEN PER E-MAR. IV PATENT. NO REPORTS OF PAIN THIS SHIFT. ISOLATION MAINTAINED.
[2020-03-28] VITALS (7 sets, daily range): BP systolic 124–144; BP diastolic 45–63
[2020-03-28 05:23] LABS: INR 3.6; PROTIME 35.3 Seconds (9.20-11.50)
[2020-03-28 15:41] LABS: HEMATOCRIT 39.3 % (42.0-52.0); HEMOGLOBIN 12.1 gm/dL (14.0-18.0); MCH 25.1 pg (26.0-34.0); MCHC 30.9 g/dL (28.0-37.0); MCV 81.3 fL (80.0-100.0); MPV 7.6 fl. (7.2-11.1); NUCLEATED RBCS 0 /100WBC; RBC 4.83 mil/uL (4.50-6.00); RDW-CV 16.2 % (10.5-14.5); WBC 15.2 thou/uL (4.0-11.0)
[2020-03-28 15:43] LABS: PLATELET COUNT* 315 thou/uL (150-400)
[2020-03-28 15:54] LABS: ALBUMIN 3.1 g/dL (3.4-5.0); CALCIUM 8.4 mg/dL (8.5-10.1); CREATININE 1.5 mg/dL (0.6-1.3); MAGNESIUM 2.3 mg/dL (1.8-2.4); PHOSPHORUS* 2.6 mg/dL (2.5-4.9); POTASSIUM 3.9 mmol/L (3.5-5.1); TOTAL PROTEIN 7.3 g/dL (6.4-8.2)
[2020-03-28 16:11] LABS: ABSOLUTE LYMPHOCYTES 0.2 thou/uL (0.8-5.3); ABSOLUTE MONOCYTES 0.5 thou/uL (0.0-1.2); ABSOLUTE NEUTROPHILS 14.6 thou/uL (1.6-8.1)
--- NOTE | 2020-03-28 18:45 | NUR ---
ASSESSMENT DOCUMENTED. MEDS GIVEN PER E-MAR. IV PATENT. PT UP TO 9L NC CANNULA THIS SHIFT, DR NOTIFIED, ORDERS RECIEVED. ISOLATION MAINTAINED.
[2020-03-29] VITALS: BP 146/50
[2020-03-29 04:00] VITALS: BP 142/56
--- NOTE | 2020-03-29 05:03 | NUR ---
ASSUMED PT'S CARE THIS PM SHIFT. PT ALERT AND ORIENTED. VSS ON 11L HFNC. NOW ON 15L HFNC. SATTING 92-93%. PT RECIEVED PLASMA PRODUCTS X2 THIS SHIFT. PTT LAB ORDERED ORDERED PER PULM. SPUTUMN SAMPLE OBTAINED. FALL PRECAUTIONS IN PLACE. CALL LIGHT WITHIN REACH. COVID-[address] WILL CONTINUE TO MONITOR.
[2020-03-29 08:00] VITALS: BP 150/51
[2020-03-29 09:27] LABS: BE -3.3 mmol/L (-2 to +3); PCO2 32.4 mmHg (35.0-45.0); PO2 80.5 mmHg (75.0-100.0); pH 7.417 (7.340-7.450)
[2020-03-29 10:10] LABS: ABSOLUTE LYMPHOCYTES 0.2 thou/uL (0.8-5.3); ABSOLUTE MONOCYTES 0.4 thou/uL (0.0-1.2); ABSOLUTE NEUTROPHILS 12.5 thou/uL (1.6-8.1); BASOPHILS 0.1 %; HEMATOCRIT 34.9 % (42.0-52.0); LYMPHOCYTES 1.3 %; MCH 25.2 pg (26.0-34.0); MCHC 31.4 g/dL (28.0-37.0); MCV 80.4 fL (80.0-100.0); MONOCYTES 3.1 %; MPV 7.8 fl. (7.2-11.1); NUCLEATED RBCS 0 /100WBC; PLATELET COUNT* 241 thou/uL (150-400); POLYS 95.5 %; RBC 4.34 mil/uL (4.50-6.00); RDW-CV 16.2 % (10.5-14.5)
[2020-03-29 10:26] LABS: INR 3.3; PROTIME 32.8 Seconds (9.20-11.50)
[2020-03-29 10:42] LABS: CALCIUM 8.5 mg/dL (8.5-10.1); CREATININE 1.6 mg/dL (0.6-1.3); MAGNESIUM 2.3 mg/dL (1.8-2.4); TOTAL BILIRUBIN 1.1 mg/dL (<0.1-1.0); TOTAL PROTEIN 6.7 g/dL (6.4-8.2)
[2020-03-29 11:57] VITALS: BP 151/62
[2020-03-29 16:11] VITALS: BP 134/50
--- NOTE | 2020-03-29 18:24 | NUR ---
ASSESSMENT DOCUMENTED. MEDS GIVEN PER E-MAR. IV PATENT. PT STARTED ON 15L HIGH FLOW NC, SATTING 89-90%. PT ALSO COUGHING UP BLOODY SPUTUM THIS SHIFT. NOTIFIED, ORDERS RECIEVED. PT TITRATED DOWN TO 13L HIGH FLOW NC THIS SHIFT. ISOLATION MAINTIANED.
[2020-03-29 20:00] VITALS: BP 144/50
[2020-03-30] VITALS: BP 137/60
[2020-03-30 04:00] VITALS: BP 145/65
--- NOTE | 2020-03-30 04:48 | NUR ---
ASSUMED CARE OF PT AFTER REPORT AT 1930. PT A&OX4. VSS. PHYSICAL ASSESSMENT COMPLETED AND CHARTED. PT ON HIGH FLOW NC AT 13L. PT TRACING AFIB/PVC ON TELE. PT UPWITH 1 ASSIST FROM/TO RECLINER. PT STILL WITH EPISODE OF HEMOPTYSIS OVER NIGHT. PT DENIES PAIN. FAL PRECAUTIONS IN PLACE. CALL LIGHT WITHIN REACH.
[2020-03-30 05:50] LABS: HEMATOCRIT 31.5 % (42.0-52.0); HEMOGLOBIN 10.2 gm/dL (14.0-18.0); MCH 25.6 pg (26.0-34.0); MCHC 32.2 g/dL (28.0-37.0); MCV 79.6 fL (80.0-100.0); MPV 7.5 fl. (7.2-11.1); RBC 3.96 mil/uL (4.50-6.00); RDW-CV 16.4 % (10.5-14.5); WBC 8.1 thou/uL (4.0-11.0)
[2020-03-30 05:59] LABS: APTT 40.5 Seconds (25.0-31.3); PROTIME 45.5 Seconds (9.20-11.50)
[2020-03-30 06:03] LABS: INR 4.7
[2020-03-30 06:11] LABS: ALBUMIN 2.6 g/dL (3.4-5.0); CREATININE 1.4 mg/dL (0.6-1.3); MAGNESIUM 2.2 mg/dL (1.8-2.4); POTASSIUM 3.3 mmol/L (3.5-5.1); TOTAL PROTEIN 5.9 g/dL (6.4-8.2)
[2020-03-30 08:00] VITALS: BP 142/56
--- NOTE | 2020-03-30 13:00 | CON ---
[facility] [address] [place] [address] CONSULTATION Name: LEENA SALINAS Room: [address] IN M.R.#: [id number] Admission: 03/24/20 Attend Phys: Germain Dillon MD Discharge: Date of : 34 Report #: [id number] THIS REPORT FOR: //name// cc: Val Zepeda MD, Avan D. MD ~ DATE OF SERVICE: 03/25/2020 REASON FOR CONSULTATION: The patient is admitted to the hospital for treatment of COVID-19. HISTORY OF PRESENT ILLNESS: The patient is a very pleasant 84-year-old gentleman with a remote history of coronary artery bypass grafting and bioprosthetic aortic valve replacement. In 2014, he had multiple stents placed to the "bottom of his heart" at [facility]. He reports occasional angina, but is presently stable from a cardiac standpoint. He reports being treated for COVID-19 at the [facility] last week, in the Intensive Care Unit for 2 days and then the floor for 1 day. He was released, but started feeling bad again and came to the hospital here where he was readmitted for further treatment for COVID-19. Presently, he has a cough. He is fatigued, mildly febrile, but without other specific complaint. He is not having significant chest pain or shortness of breath beyond his usual. He does have chronic obstructive pulmonary disease and asbestosis. Cardiac enzymes are unremarkable. EKG shows atrial fibrillation with a controlled ventricular response rate. I do not appreciate acute changes. PAST MEDICAL HISTORY: Coronary artery disease with coronary artery bypass grafting and bioprosthetic aortic valve replacement remotely in 1997. The patient has percutaneous coronary intervention in 2014. He has a history of asbestosis and COPD. He has non-insulin dependent diabetes. He has hypertension and dyslipidemia. He has a remote history of smoking, but does not smoke for years. Chronic atrial fibrillation, nephrolithiasis, cholecystectomy, and umbilical hernia repair. ALLERGIES: DEMEROL, MORPHINE, AND PROMETHAZINE. HOME MEDICATIONS: Crestor 5 mg daily, hydrochlorothiazide 25 mg daily, Nitrostat sublingual p.r.n., lisinopril 10 mg daily, warfarin 4 mg alternating with 6 mg as scheduled. REVIEW OF SYSTEMS: A 14-point review of systems as per HPI, otherwise unremarkable. FAMILY HISTORY: Positive for coronary artery disease. SOCIAL HISTORY: The patient is . He does not [place] [address] CONSULTATION Name: LEENA SALINAS Room: [address]#: [id number] Admission: 03/24/20 Attend Phys: Germain Dillon MD Discharge: Date of : 34 Report #: [id number] not drink alcohol. PHYSICAL EXAMINATION: VITAL SIGNS: Stable. Heart rate is in the 70s and 80s. Blood pressure was 198/72. GENERAL: This is a thin, pleasant gentleman who is in no distress. Mood and affect appropriate. HEENT: Extraocular muscles are intact. Mucous membranes are moist. NECK: Shows no jugular venous distention. There are no carotid bruits. CHEST: Reveals diminished breath sounds throughout without wheezes or rales. CARDIOVASCULAR: Reveals an irregularly irregular rhythm without gallop. There is a soft 1/6 systolic ejection murmur. ABDOMEN: Reveals normal bowel sounds. The abdomen is soft and nontender. EXTREMITIES: Shows no edema. IMPRESSION AND RECOMMENDATIONS: 1. Chronic atrial fibrillation, rate is adequately controlled. The patient is chronically anticoagulated and having no bleeding problems. 2. Coronary artery disease, presently stable. He does report occasional angina, but has not had any increase in his angina with his current illness. 3. History of bioprosthetic aortic valve replacement. The patient follows with the [facility] Cardiology Department. 4. Hypertension. Blood pressure moderately elevated at this time. We will add low-dose amlodipine and p.r.n. hydralazine. Continue lisinopril. 5. Possible dyslipidemia. Continue Crestor at current dose. From a cardiac standpoint, the patient appears stable. <ELECTRONICALLY SIGNED> By: Juan Ramirez MD, FACC 03/30/20 1300 48 10Michattie Ramirez MD, FACC /nt
[2020-03-30 13:05] VITALS: BP 143/52
[2020-03-30 13:09] LABS: BE -5.1 mmol/L (-2 to +3); PCO2 28.5 mmHg (35.0-45.0); PO2 74.4 mmHg (75.0-100.0); pH 7.425 (7.340-7.450)
--- NOTE | 2020-03-30 16:10 | NUR ---
patient resting in bed. 13l per high flow nasal canula and bipap while resting or asleep. accuchecks. duinebs per orders. aox4.
[2020-03-30 16:50] VITALS: BP 144/51
[2020-03-30 20:00] VITALS: BP 150/52
[2020-03-31 00:11] VITALS: BP 102/56
[2020-03-31 04:00] VITALS: BP 98/52
[2020-03-31 05:20] LABS: ABSOLUTE LYMPHOCYTES 0.2 thou/uL (0.8-5.3); ABSOLUTE MONOCYTES 0.4 thou/uL (0.0-1.2); ABSOLUTE NEUTROPHILS 9.5 thou/uL (1.6-8.1); BASOPHILS 0.1 %; HEMATOCRIT 34.2 % (42.0-52.0); HEMOGLOBIN 11.1 gm/dL (14.0-18.0); LYMPHOCYTES 1.5 %; MCH 25.5 pg (26.0-34.0); MCHC 32.4 g/dL (28.0-37.0); MCV 78.8 fL (80.0-100.0); MONOCYTES 3.8 %; NUCLEATED RBCS 0 /100WBC; PLATELET COUNT* 209 thou/uL (150-400); POLYS 94.6 %; RBC 4.34 mil/uL (4.50-6.00); RDW-CV 16.3 % (10.5-14.5); WBC 10.1 thou/uL (4.0-11.0)
[2020-03-31 05:38] LABS: PROTIME 58.8 Seconds (9.20-11.50)
[2020-03-31 06:06] LABS: INR 6.2
--- NOTE | 2020-03-31 06:18 | NUR ---
ASSUMED CARE OF PT AFTER REPORT AT 1930. PT A&OX4. VSS. PHYSICAL ASSESSMENT COMPLETED AND CHARTED. PT ON CONTINUOUS BIPAP- WITH CONT PULSE OX. PT TRACING AFIB ON TELE. PT DENIES ANY PAIN. NO EPISODE OF HEMOPTYSIS NOTED. MAINTAINED ON ENHANCED ISOLATION. CALL LIGHT WITHIN REACH.
[2020-03-31 06:22] LABS: ALBUMIN 2.7 g/dL (3.4-5.0); CALCIUM 8.3 mg/dL (8.5-10.1); CREATININE 1.3 mg/dL (0.6-1.3); MAGNESIUM 2.4 mg/dL (1.8-2.4); POTASSIUM 3.3 mmol/L (3.5-5.1); TOTAL BILIRUBIN 1.4 mg/dL (<0.1-1.0); TOTAL PROTEIN 6.3 g/dL (6.4-8.2)
[2020-03-31 08:27] VITALS: BP 139/57
--- NOTE | 2020-03-31 10:10 | NUR ---
ASSUMED CARE OF PT THIS AM AROUND 0715- THORACIC SURGEON IN PLACE ORDERED, TRACING A-FIB/RATE OCNTROLLED/PAC- UPON ASSESSMENT PT NOTED TO BE RESTING IN BED, BIPAP IN PLACE- PT A&O X4, FORGETFULL- CONT OF BOWEL/BLADDER- COURSE LUNGS SOUNDS WITH RHONCI NOTED- VSS, O2 SAT 99% ON BIPAP THIS AM- ABD SOFT/ROUND/NON-TENDER, BS X4 QUADS- LAST BM REPORTED X7 DAYS AGO, POOR APETITIE NOTED- BS MONITORED WITH SSI INSULIN PRESCRIBED- IV NOTED TO RIGHT FA AND LEFT WRIST INTACT AND SL- IV ABT GIVEN THIS AM PRESCRIBED- K+ NOTED AT 3.3 THIS AM, CURRENLTY BEING REPLACED PER PROTOCOL- CHEST X-RAY THIS AM WITH RESULTS NOTED IN [facility]-ISOLATION IN PLACE AND MAINTAINED INDICARED R/T COVID- PT DENIES ANY C/O PAIN/DISCOMFORT- CALL LIGHT AND PERSONAL BELONGINGS WITH IN REACH- HOURLY ROUNDS IN PLACE R/T SAFETY/NEEDS- ALL NEEDS MET AT THIS TIME-WCTM
[2020-03-31 12:00] VITALS: BP 120/58
--- NOTE | 2020-03-31 13:02 | NUR ---
CM INFORMED DURING PRIME ROUNDING OF THE PLAN OF CARE FOR THE PT INCLUDING PENDING PULM CONSULT. PT REMAINS ON IV ABT'S AND STEROIDS, AND REQUIRING BIPAP AT REST. PT MAY NEED HH AND HOME O2 AT D/C. CM WILL REMAIN AVAILABLE TO ASSIST WITH D/C PLANNING NEEDED.
[2020-03-31 16:00] VITALS: BP 139/69
[2020-03-31 20:00] VITALS: BP 112/52
[2020-04-01] VITALS: BP 168/53
[2020-04-01 04:00] VITALS: BP 160/50
[2020-04-01 05:05] LABS: HEMATOCRIT 31.7 % (42.0-52.0); HEMOGLOBIN 10.1 gm/dL (14.0-18.0); MCH 25.5 pg (26.0-34.0); MCHC 31.9 g/dL (28.0-37.0); MPV 7.6 fl. (7.2-11.1); NUCLEATED RBCS 0 /100WBC; PLATELET COUNT* 194 thou/uL (150-400); RBC 3.96 mil/uL (4.50-6.00); RDW-CV 16.6 % (10.5-14.5); WBC 8.7 thou/uL (4.0-11.0)
[2020-04-01 05:24] LABS: PROTIME 23.6 Seconds (9.20-11.50)
[2020-04-01 05:36] LABS: ALBUMIN 2.6 g/dL (3.4-5.0); CALCIUM 8.2 mg/dL (8.5-10.1); CREATININE 1.2 mg/dL (0.6-1.3); MAGNESIUM 2.3 mg/dL (1.8-2.4); POTASSIUM 4.2 mmol/L (3.5-5.1); TOTAL BILIRUBIN 1.6 mg/dL (<0.1-1.0); TOTAL PROTEIN 5.9 g/dL (6.4-8.2)
[2020-04-01 05:40] LABS: INR 2.4
[2020-04-01 07:15] LABS: ABSOLUTE LYMPHOCYTES 0.3 thou/uL (0.8-5.3); ABSOLUTE NEUTROPHILS 8.4 thou/uL (1.6-8.1); ANISOCYTOSIS 2+; BURR CELLS 1+; OVALOCYTES 1+; PLATELET ESTIMATE ADEQUATE
[2020-04-01 07:54] VITALS: BP 165/63
--- NOTE | 2020-04-01 09:44 | NUR ---
ASSUMED CARE OF PT THIS AM AROUND 0715- DOCTOR OF OSTEOPATHY IN PLACE ORDERED, TRACING A-FIB RATE CONTROLLED- UPON ASSESSMENT PT NOTED TO BE RESTING IN BED- PT A&O X4, FORGETFULL- CONT OF B/B- ASSIST X1 WITH TRANSFERS- COURSE LING SOUNDS NOTED, DININISHED IN BASES- VSS, O2 SAT 94% ON RA, BIPAP REMOVED THIS AM, PT O2 SAT NOTED TO BE STABLE ON RA- ABD SOFT/ROUND/NON-TENDER, BS X4 QUADS- IV NOTED TO RIGHT FA AND LEFT WRIST INTACT AND SL, IV ABT GIVEN THIS AM PRESCRIBED- LISINOPRIL NOTED TO BE INCREASED TO 20MG THIS AM PER CARDIO AND GIVEN- WARFARIN RESTARTED AT 5MG PO- SET UP ASSIST REQUIRED WITH MEALS, POOR PO INTAKE NOTED- BS MONITORED ORDERED WITH SSI PRESCRIBED- BLOOD SPUTUM NOTED THIS AM- CALL LIGHT AND PERSONAL BELONGINGS WITH IN REACH- ISOLATION IN PLACE AND MAINTAINED INDICATED- HOURLY ROUNDS IN PLACE R/T SAFETY/NEEDS- ALL NEEDS MET AT THIS TIME-WCTM
[2020-04-01 12:00] VITALS: BP 140/59
[2020-04-01 16:00] VITALS: BP 133/58
[2020-04-01 20:00] VITALS: BP 145/57
[2020-04-02] VITALS: BP 148/59
[2020-04-02 04:00] VITALS: BP 152/57
[2020-04-02 05:36] LABS: ABSOLUTE LYMPHOCYTES 0.3 thou/uL (0.8-5.3); ABSOLUTE MONOCYTES 0.4 thou/uL (0.0-1.2); ABSOLUTE NEUTROPHILS 9.4 thou/uL (1.6-8.1); BASOPHILS 0.3 %; HEMATOCRIT 31.5 % (42.0-52.0); HEMOGLOBIN 10.3 gm/dL (14.0-18.0); LYMPHOCYTES 2.7 %; MCH 25.8 pg (26.0-34.0); MCHC 32.7 g/dL (28.0-37.0); MONOCYTES 4.1 %; MPV 7.6 fl. (7.2-11.1); NUCLEATED RBCS 0 /100WBC; PLATELET COUNT* 198 thou/uL (150-400); POLYS 92.9 %; RBC 3.98 mil/uL (4.50-6.00); RDW-CV 16.7 % (10.5-14.5); WBC 10.1 thou/uL (4.0-11.0)
[2020-04-02 05:49] LABS: PROTIME 20.3 Seconds (9.20-11.50)
[2020-04-02 05:55] LABS: ALBUMIN 2.7 g/dL (3.4-5.0); CALCIUM 8.5 mg/dL (8.5-10.1); CREATININE 1.2 mg/dL (0.6-1.3); MAGNESIUM 2.9 mg/dL (1.8-2.4); POTASSIUM 4.4 mmol/L (3.5-5.1)
--- NOTE | 2020-04-02 07:26 | NUR ---
ASSUMED CARE OF PT AFTER REPORT AT 1930. PT A&OX4. VSS. PHYSICAL ASSESSMENT COMPLETED AND CHARTED. PT ON BIPAP/ 2L NC. PT TRACING AFIB ON TELE. PT DENIES PAIN. MAINTAINED ON ENHANCED ISOLATION. CALL LIGHT WITHIN REACH.
[2020-04-02 08:45] VITALS: BP 149/43
[2020-04-02 12:00] VITALS: BP 152/59
--- NOTE | 2020-04-02 12:59 | CON ---
[address] [address] CONSULTATION Name: LEENA SALINAS Room: [place] [address] ADM IN M.Alfonzo.#: [id number] Admission: 03/24/20 Attend Phys: Germain Dillon MD Discharge: Date of : 34 Report #: [id number] THIS REPORT FOR: //name// cc: Val Zepeda MD, Avan D. MD ~ DATE OF SERVICE: 03/25/2020 REQUESTING PHYSICIAN: Dr. Ramirez. HISTORY OF PRESENT ILLNESS: An 84-year-old gentleman with past medical history as mentioned below. This does include a history of uncontrolled hypertension as well as atrial fibrillation. The patient is anticoagulated with Coumadin. He does have a history of smoking in the past as well; however, I do not see the diagnosis of COPD on his records. The patient is now here for a progressive weight loss. He also reported having increasing shortness of breath and a nonproductive cough for the last few days. The patient upon arrival was noted to have some pulmonary infiltrates. He was tested for COVID-19 and was found to be positive for the COVID-19 antigen. Since then, the patient has intermittently needed oxygen up to 2 liters, has dropped O2 saturation to the upper 80s on room air, currently he is maintaining O2 saturation of around 93% on room air. The patient does report improvement in shortness of breath since he was admitted. He does have mild swelling of lower extremities. There is no calf pain. The patient has had chills as well as changes in appetite. There is no documented fever. Answers to the negative for 12 questions for review of systems except as mentioned above. PAST MEDICAL HISTORY: Coronary artery disease, status post CABG, hypertension, hyperlipidemia. He has an artificial heart valve in 1997, also does have a history of atrial fibrillation, kidney stones, gallbladder removed, umbilical hernia repair, heavy alcohol intake in the past, and osteoarthritis. The patient's last available echocardiogram is from 2018 and shows a left ventricular ejection fraction of 55%. There is a mechanical aortic valve noted. There is mild mitral regurgitation. Tricuspid valve is reported to be normal. SOCIAL HISTORY: There is an extensive history of smoking in the past. He is reported to have now discontinued, unable to quantify exactly. Also, history of heavy alcohol intake in the past, also now discontinued. No known history of illegal drug use. CURRENT MEDICATIONS: List in [employer] reviewed. HOME MEDICATIONS: List also in [employer] reviewed. FAMILY HISTORY: There [place] [address] CONSULTATION Name: LEENA SALINAS Room: [address] IN [facility]#: [id number] Admission: 03/24/20 Attend Phys: Germain Dillon MD Discharge: Date of : 34 Report #: [id number] ALLERGIES: MORPHINE, PHENERGAN AND DEMEROL ARE MENTIONED ALLERGIES. PHYSICAL EXAMINATION: GENERAL: He is alert, awake and oriented, does not appear to be in any distress at this time. VITAL SIGNS: Has a pulse of 63 and a blood pressure of 146/87, last recorded I am told that his blood pressure has now just being rechecked and is now in the 160 systolic range, saturating 93% on room air earlier dropped to 88% on room air, respiratory rate mildly elevated to 21, afebrile with a temperature of 36.4. HEENT: Head is normocephalic and atraumatic. NECK: Does not show raised JVP, asymmetry, mass or lymph nodes. CHEST: Symmetrical expansion on inspection and palpation. On auscultation, chest is essentially clear. HEART: Regular, no murmur. ABDOMEN: Soft and nontender. EXTREMITIES: Lower extremities show trace edema bilaterally. No calf tenderness. SKIN: Dry and intact. NEUROLOGICAL: Moves all extremities bilaterally equally and spontaneously with no focal deficit identified. LABORATORY DATA: The patient's chest x-ray is reviewed and there are patchy bilateral infiltrates noted. The patient's lab work is in [employer] and is reviewed. INR of 2.7 and a creatinine of 1.2 yesterday noted. The patient has been resuscitated with saline since then. ASSESSMENT AND PLAN: 1. COVID-19. The patient has had intermittent drop in O2 saturation on room air as above, although he is maintaining O2 saturation on room air 93% right now, I therefore discussed with the pharmacy and requested proceeding with treating him with remdesivir, this is likely to reduce his length of stay and will improve his chances of having a good outcome. I would recommend continuing with corticosteroid as well; however, we feel that we can go ahead and cut back on the dose of Solu-Medrol at this time. In case he continues to improve, I will consider switching it over to oral Decadron tomorrow. The patient will need monitoring of LFTs while on remdesivir. 2. Pulmonary infiltrates. These are likely secondary to COVID-19 in addition to possibly there could be a component of mild pulmonary vascular congestion as well; however, secondary bacterial infection is not ruled out. Therefore, I agree with Zithromax as is currently ordered. In fact, we will go ahead and switch his cefdinir over to IV ceftriaxone. We are able to get a sputum culture, we will recommend obtaining the same but also, recommend obtaining a nasal swab for methicillin-resistant Staphylococcus aureus. 3. Mild fluid overload, we discontinued IV fluids. His potassium was 3.[address] [place] [address] CONSULTATION Name: LEENA SALINAS [place] Room: [place] [address] ADM IN .R.#: [id number] Admission: 03/24/20 Attend Phys: Germain Dillon MD Discharge: Date of : 34 Report #: [id number] yesterday, likely will be lower now. Did give him more potassium now. Repeat labs tomorrow. 4. Hypertension. Blood pressure does appear to be on the higher side. We will defer management to the primary service. 5. Coronary artery disease, status post mechanical aortic valve/atrial fibrillation. The patient is noted to be anticoagulated with Coumadin. 6. Clostridium difficile prophylaxis, Florastor. Thanks for this consultation. <ELECTRONICALLY SIGNED> By: Fred Vail MD 04/02/20 1259 [id number] Vail MD /nt
[2020-04-02 16:00] VITALS: BP 149/60
--- NOTE | 2020-04-02 20:36 | NUR ---
VSS. UPON INITIAL ASSESSMENT, O2 ON 2L O2 PER NC WAS 86%. TITRATED TO 6L TO OBTAIN O2 SAT 93%. CONTINUOUS O2 MONITOR AT BEDSIDE IN USE PER ORDER. ASSISTED TO BSC X1, VERY LARGE SOFT BM. SOA WITH EXERSION. DENIES PAIN. CALL LIGHT WITHIN REACH.
[2020-04-03] VITALS: BP 144/68
[2020-04-03 04:00] VITALS: BP 150/55
[2020-04-03 04:58] LABS: ABSOLUTE LYMPHOCYTES 0.2 thou/uL (0.8-5.3); ABSOLUTE MONOCYTES 0.4 thou/uL (0.0-1.2); ABSOLUTE NEUTROPHILS 13.8 thou/uL (1.6-8.1); BASOPHILS 0.3 %; HEMATOCRIT 31.5 % (42.0-52.0); LYMPHOCYTES 1.5 %; MCH 25.3 pg (26.0-34.0); MCHC 31.9 g/dL (28.0-37.0); MCV 79.3 fL (80.0-100.0); MONOCYTES 2.9 %; MPV 7.8 fl. (7.2-11.1); NUCLEATED RBCS 0 /100WBC; PLATELET COUNT* 223 thou/uL (150-400); POLYS 95.3 %; RBC 3.97 mil/uL (4.50-6.00); RDW-CV 16.7 % (10.5-14.5); WBC 14.5 thou/uL (4.0-11.0)
[2020-04-03 05:11] LABS: INR 2.8; PROTIME 27.6 Seconds (9.20-11.50)
[2020-04-03 05:16] LABS: ALBUMIN 2.7 g/dL (3.4-5.0); CALCIUM 8.1 mg/dL (8.5-10.1); CREATININE 1.2 mg/dL (0.6-1.3); MAGNESIUM 2.7 mg/dL (1.8-2.4); POTASSIUM 4.7 mmol/L (3.5-5.1); TOTAL BILIRUBIN 2.4 mg/dL (<0.1-1.0)
[2020-04-03] MEDS ORDERED: NORCO 10-325 T1 EACH PO (06:22)
--- NOTE | 2020-04-03 06:57 | NUR ---
ASSUMED PT CARE AT APPROX 1930. PT IS AWAKE AND ORIENTED X4. PT IS TRACING AFIB-RATE CONTROLLED ON THE AUTOMOBILE MECHANIC SUPERVISOR. NO DESATURATIONS NOTED ON THE BIPAP, ALTHOUGH PT IS TACHYPNEIC AND APPEARED TO BE SHORT OF AIR WITH ACTIVITY. PT C/O RIGHT FLANK PAIN PARTIALLY RELIEVED BY FENTANYL GIVEN PER JUL. DR JEAN INFORMED AND FENTANYL DOSE IS INCREASED ORDERED. PT IS MONITORED HOURLY FOR PT SAFETY. HIGH FALL PRECAUTIONS IN PLACE. CALL LIGHT WITHIN REACH.
[2020-04-03 08:00] VITALS: BP 137/62
--- NOTE | 2020-04-03 12:44 | NUR ---
CM INFORMED DURING PRIME ROUNDING OF THE PLAN OF CARE FOR THE PT INCLUDING PLAN FOR PT TO REMAIN ON I.V. ABT'S AND I.V. STEROIDS. PT CONTINUES TO USE BIPAP AT [facility] AND INCREASED NEED OR OXYGEN DRUING THE DAY. PT WILL NEED F/T P.T. ASSESSMENT WHEN ABLE TO DETERMINE MOBILITY STATUS AND NEED FOR HH VS SNF PRIOR TO D/C. CM WILL REMAIN AVAILABLE TO ASSIST AND FOLLOW NEEDED.
[2020-04-03 12:59] VITALS: BP 144/64
--- NOTE | 2020-04-03 18:45 | NUR ---
ASSUMED PT CARE FROM GEORGES BENITEZ AT APPROX 1230, PT HAD NO C/O PAIN OR SHORTNESS OF BREATH AND WAS MOVED FROM TELE UNIT TO ROOM 109 IN [facility] COVID UNIT. PT BEING MOVED AROUND IN BED FREQUENTLY AND C/O PAIN THIS AFTERNOON TREATED W/ PRN NORCO W/ RELIEF. PT GOAL IS TO KEEP PAIN UNDER CONTROL AND KEEP SATS ABOVE 90%, PT ON CONTINUOUS PULSE OX MONITOR. AM ASSESSMENT CHARTED, MEDS PER MAR, HOURLY ROUNDING OBSERVED, FALL PRECAUTIONS IN PLACE, CALL LIGHT W/IN REACH.
[2020-04-03 20:00] VITALS: BP 130/42
[2020-04-03 23:59] VITALS: BP 143/52
--- NOTE | 2020-04-04 00:19 | NUR ---
PT REFUSED BIPAP. STATED HE DID NOT WANT TO WEAR BIPAP TONIGHT. PT SATS 98%. WILL MONITOR CLOSELY.
[2020-04-04 04:55] VITALS: BP 143/47
[2020-04-04 06:01] LABS: HEMATOCRIT 25.4 % (42.0-52.0); HEMOGLOBIN 8.2 gm/dL (14.0-18.0); MCH 25.7 pg (26.0-34.0); MCHC 32.4 g/dL (28.0-37.0); MCV 79.5 fL (80.0-100.0); MPV 8.1 fl. (7.2-11.1); NUCLEATED RBCS 0 /100WBC; RDW-CV 16.6 % (10.5-14.5); WBC 11.7 thou/uL (4.0-11.0)
[2020-04-04 06:08] LABS: PLATELET COUNT* 137 thou/uL (150-400)
[2020-04-04 06:18] LABS: ALBUMIN 2.4 g/dL (3.4-5.0); CALCIUM 7.8 mg/dL (8.5-10.1); CREATININE 1.2 mg/dL (0.6-1.3); MAGNESIUM 2.6 mg/dL (1.8-2.4); POTASSIUM 4.8 mmol/L (3.5-5.1); TOTAL BILIRUBIN 1.5 mg/dL (<0.1-1.0); TOTAL PROTEIN 5.4 g/dL (6.4-8.2)
[2020-04-04 06:32] LABS: ABSOLUTE LYMPHOCYTES 0.8 thou/uL (0.8-5.3); ABSOLUTE MONOCYTES 0.4 thou/uL (0.0-1.2); ABSOLUTE NEUTROPHILS 10.5 thou/uL (1.6-8.1); PLATELET ESTIMATE ADEQUATE
[2020-04-04 08:00] VITALS: BP 114/51
--- NOTE | 2020-04-04 08:25 | NUR ---
ASSUMED PT CARE AT APPROX 1930. PT IS AWAKE AND ORIENTED X4.PT IS TRACING AFIB RATE CONTROLLED ON THE ELECTRICAL DRAFTER. PT C/O RIGHT FLANK PAIN THAT IS PARTIALLY RELIEVED BY PAIN MEDS GIVEN PER JUL. PT IS REPOSITIONED FOR COMFORT. NO ACUTE CHANGES THIS SHIFT. CALL LIGHT WITHIN REACH. HOURLY ROUNDING DONE FOR SAFETY. HIGH FALL PRECAUTIONS IN PLACE.
[2020-04-04 13:32] VITALS: BP 134/53
[2020-04-04 17:37] VITALS: BP 125/38
--- NOTE | 2020-04-04 19:14 | NUR ---
ASSUMED PT CARE AT 0730, PT AOX4, STATES HIS BACK PAIN COMES AND GOES AND HE WOULD PREFER TO TAKE NORCO PREVENTATIVELY SO WE GAVE THAT TWICE TODAY, PT STATES IT'S WORKING WELL. PT GOT UP W/ OT TO SIDE OF BED AROUND DINNER AND GOT CLEANED UP. PT BEING TURNED Q2H, WORKED W/ RT FOR BREATHING TX TODAY. PT GOAL IS TO KEEP SATS ABOVE 90% AND INCREASE ACTIVITY. AM ASSESSMENT CHARTED, MEDS PER MAR, HOURLY ROUNDING OBSERVED, FALL PRECAUTIONS IN PLACE, CALL LIGHT W/IN REACH.
[2020-04-04 20:00] VITALS: BP 125/89
[2020-04-05] VITALS: BP 111/54; BP 118/74
[2020-04-05 04:00] VITALS: BP 133/81
--- NOTE | 2020-04-05 04:44 | NUR ---
ASSUMED PT CARE AT APPROX 1930. PT IS AWAKE AND ORIENTED X4. PT IS TRACING AFIB-RATE CONTROLLED ON THE MONITOR. PT STATED PAIN HAS BEEN MORE CONTROLLED, PAIN MEDS GIVEN PER MAR NEEDED. NO ACUTE CHANGES THROUGHOUT THIS SHIFT. CALL LIGHT WITHIN REACH. HIGH FALL PRECAUTIONS IN PLACE. HOURLY ROUNDING DONE FOR PT SAFETY.
[2020-04-05 06:45] LABS: HEMOGLOBIN 7.9 gm/dL (14.0-18.0); MCH 25.1 pg (26.0-34.0); MCHC 31.6 g/dL (28.0-37.0); MCV 79.5 fL (80.0-100.0); MPV 8.6 fl. (7.2-11.1); RBC 3.14 mil/uL (4.50-6.00); RDW-CV 16.7 % (10.5-14.5); WBC 14.7 thou/uL (4.0-11.0)
[2020-04-05 06:59] LABS: ALBUMIN 2.4 g/dL (3.4-5.0); CALCIUM 7.8 mg/dL (8.5-10.1); CREATININE 1.2 mg/dL (0.6-1.3); MAGNESIUM 2.5 mg/dL (1.8-2.4); TOTAL BILIRUBIN 1.8 mg/dL (<0.1-1.0); TOTAL PROTEIN 5.3 g/dL (6.4-8.2)
[2020-04-05 08:00] VITALS: BP 132/50
[2020-04-05 08:25] LABS: INR 6.8
[2020-04-05 16:00] VITALS: BP 131/78
--- NOTE | 2020-04-05 18:42 | NUR ---
PT IS ALERT AND ORIENTED X4 FORGETFUL AT TIMES DENIES PAIN BESIDES BOTTOM BUT REPOSITIONS OFTEN USES URINAL APPROPRIATELY ON 4L NC SATS 94-97% TOLD TO USE BIPAP AT NIGHT 2 IVS INTACT AND PATENT IV ZOSYN CONTINUES CALL LIGHT IN REACH
[2020-04-05 20:00] VITALS: BP 148/54
[2020-04-06] VITALS: BP 142/53
[2020-04-06 04:00] VITALS: BP 111/64
[2020-04-06 05:50] LABS: ABSOLUTE LYMPHOCYTES 0.5 thou/uL (0.8-5.3); ABSOLUTE MONOCYTES 0.9 thou/uL (0.0-1.2); ABSOLUTE NEUTROPHILS 11.6 thou/uL (1.6-8.1); BASOPHILS 0.1 %; HEMATOCRIT 23.1 % (42.0-52.0); HEMOGLOBIN 7.4 gm/dL (14.0-18.0); LYMPHOCYTES 3.9 %; MCH 25.3 pg (26.0-34.0); MCV 79.2 fL (80.0-100.0); MONOCYTES 6.9 %; NUCLEATED RBCS 0 /100WBC; PLATELET COUNT* 117 thou/uL (150-400); POLYS 89.1 %; RBC 2.92 mil/uL (4.50-6.00); RDW-CV 16.6 % (10.5-14.5); WBC 13.1 thou/uL (4.0-11.0)
[2020-04-06 06:03] LABS: CALCIUM 7.8 mg/dL (8.5-10.1); CREATININE 1.2 mg/dL (0.6-1.3); MAGNESIUM 2.4 mg/dL (1.8-2.4)
[2020-04-06 06:09] LABS: PROTIME 61.9 Seconds (9.20-11.50)
[2020-04-06 06:23] LABS: INR 6.5
--- NOTE | 2020-04-06 07:41 | NUR ---
ASSUMED PT CARE AT APPROX 1930. PT IS AWAKE AND ORIENTED X4. PT IS AFIB ON THE FISHER TROT LINE-RATE CONTROLLED. PT IS NOT IN DISTRESS. NO DESATURATIONS NOTED ON 4L OF O2, O2 SUPPORT IS DECREASED TO 2L/NC, O2 SAT IS MAINTAIN BETWEEN 95-99%. PT IS CLOSELY MONITORED. PT IS REPOSITIONED Q2H.
[2020-04-06 08:49] VITALS: BP 143/55
[2020-04-06 12:00] VITALS: BP 92/68
[2020-04-06 16:00] VITALS: BP 135/38
--- NOTE | 2020-04-06 18:54 | NUR ---
PT IS ALERT AND ORIENTED BUT FORGETFUL TO TIME AND SITUATION AT TIMES PLEASANT AND COOPERATIVE C/O PAIN TO BACK/BOTTOM NORCO HELPS USES CALL LIGHT APPROPRIATELY 2 IVS PATENT 2L NC 96-99% ON SURGEON PARTNER LBM T-2 NOT MUCH OF AN APPETITE USES URINAL WITH NOT MUCH OUTPUT EITHER ACHS SAT ON SIDE OF BED FOR MAYBE 10 MIN DID NOT TOLERATE WELL COUMADIN BEING HELD FOR INCREASED INR AFIB ON THE MONITOR CONTROLLED
[2020-04-06 20:00] VITALS: BP 144/53
--- NOTE | 2020-04-06 20:00 | NUR ---
RECEIVED REPORT AND ASSUMED CARE OF PT, ASSESSMENT COMPLETED. PT PLEASANT AND TALKATIVE. HAVING A MOIST NON-PRODUCTIVE COUGH. O2 ON AT 2L/NC, NO SOA NOTED. TELEMETRY ON SHOWING A-FIB. VOIDING PER URINAL. WILL CONT TO MONITOR AND ASSIST NEEDED.
[2020-04-07] VITALS (7 sets, daily range): BP systolic 121–152; BP diastolic 51–78
[2020-04-07 05:42] LABS: HEMATOCRIT 24.2 % (42.0-52.0); HEMOGLOBIN 7.8 gm/dL (14.0-18.0); MCH 25.7 pg (26.0-34.0); MCHC 32.3 g/dL (28.0-37.0); MCV 79.4 fL (80.0-100.0); MPV 7.8 fl. (7.2-11.1); RBC 3.05 mil/uL (4.50-6.00); RDW-CV 16.1 % (10.5-14.5); WBC 11.3 thou/uL (4.0-11.0)
[2020-04-07 05:51] LABS: PROTIME 56.2 Seconds (9.20-11.50)
[2020-04-07 05:57] LABS: INR 5.9
[2020-04-07 05:58] LABS: ALBUMIN 2.4 g/dL (3.4-5.0); CALCIUM 7.9 mg/dL (8.5-10.1); MAGNESIUM 2.3 mg/dL (1.8-2.4); POTASSIUM 4.8 mmol/L (3.5-5.1); TOTAL BILIRUBIN 1.5 mg/dL (<0.1-1.0); TOTAL PROTEIN 5.3 g/dL (6.4-8.2)
--- NOTE | 2020-04-07 07:25 | NUR ---
AWAKE FREQ TONIGHT ASKING FOR HAMBURGER. STATING THE JUICIER THE BETTER. NO CHANGE IN ASSESSMENT. VOIDING PER URINAL. TELEMETRY ON SHOWING A-FIB. HS GOALS OF REST AND SAFETY. HOURLY ROUNDING OBSERVED. REMAINS IN ISOLATION FOR COVID.
--- NOTE | 2020-04-07 16:00 | NUR ---
PT.REMAINS ON O2. NO BIPAP AT NIGHT,ANY LONGER. CONFUSED AT TIMES. PER ,DURING LOS MEETING, PT.STILL VERY WEAK AND MAY NEED SNF. HE WAS INDEPENDENT PRIOR TO GETTING ILL AND LIVES WITH . HAD PT EVAL ON 03/25. NO DOCUMENTATION SINCE THAT TIME. WILL NEED TO SEE HOW PT.IS ABLE TO AMBULATE TO DETERNINE . IF HE WILL NEED SNF OR HOME WITH HH.
--- NOTE | 2020-04-07 18:15 | NUR ---
PT IS ALERT AND ORIENTED BUT FORGETFUL AT TIMES APPETITE BETTER TODAY ON ROOM AIR WITH SATS IN MID-90S THERAPY WORKED WITH PT TODAY PT IS STILL WEAK MIGHT NEED HOME HEALTH OR SNF WHEN DISCHARGED NORCO GIVEN X 2 TODAY CALL LIGHT IN REACH CALLS OUT APPROPRIATELY
[2020-04-08] VITALS: BP 133/43
[2020-04-08 04:00] VITALS: BP 136/47
[2020-04-08 05:14] LABS: HEMATOCRIT 21.7 % (42.0-52.0); HEMOGLOBIN 7.1 gm/dL (14.0-18.0); MCH 25.8 pg (26.0-34.0); MCHC 32.6 g/dL (28.0-37.0); MCV 79.1 fL (80.0-100.0); MPV 8.3 fl. (7.2-11.1); NUCLEATED RBCS 0 /100WBC; PLATELET COUNT* 115 thou/uL (150-400); RBC 2.74 mil/uL (4.50-6.00); RDW-CV 16.4 % (10.5-14.5); WBC 9.2 thou/uL (4.0-11.0)
[2020-04-08 05:33] LABS: PROTIME 46.5 Seconds (9.20-11.50)
[2020-04-08 05:37] LABS: ALBUMIN 2.2 g/dL (3.4-5.0); CALCIUM 7.6 mg/dL (8.5-10.1); CREATININE 0.9 mg/dL (0.6-1.3); MAGNESIUM 2.3 mg/dL (1.8-2.4); POTASSIUM 5.1 mmol/L (3.5-5.1); TOTAL BILIRUBIN 1.1 mg/dL (<0.1-1.0); TOTAL PROTEIN 4.9 g/dL (6.4-8.2)
[2020-04-08 05:49] LABS: PREALBUMIN 24.8 mg/dL (18.0-35.7)
[2020-04-08 05:52] LABS: INR 4.8
[2020-04-08 06:42] LABS: ABSOLUTE LYMPHOCYTES 0.5 thou/uL (0.8-5.3); ABSOLUTE MONOCYTES 0.4 thou/uL (0.0-1.2); ABSOLUTE NEUTROPHILS 8.4 thou/uL (1.6-8.1); PLATELET ESTIMATE ADEQUATE
[2020-04-08 12:58] VITALS: BP 128/44
--- NOTE | 2020-04-08 14:19 | NUR ---
OK TO DISCONTINUE CONTINUOUS PULSE OXIMETER PER DR. JOHNSON.
[2020-04-08 15:56] VITALS: BP 144/54
--- NOTE | 2020-04-08 17:16 | NUR ---
REPORT GIVEN TO ANN SU.
[2020-04-08 20:00] VITALS: BP 132/46
[2020-04-09] VITALS (7 sets, daily range): BP systolic 120–158; BP diastolic 41–79
--- NOTE | 2020-04-09 02:48 | NUR ---
ASSUMED CARE FROM DAY SHIFT PT RESTING IN BED , JIA BUCIO RA SAT 88% 02 APPLIED AND 02 SAT INCREASDE TO 94 %, LOOSE PRODUCTIVE COUGH NOTED,PT C/O BACK PAIN , MEDICATION GIVEN AND PT REPOSITIONED. WILL CONTINUE WITH CURRENT PLAN OF CARE AND WILL REPORT CHANGES.
[2020-04-09 05:40] LABS: ABSOLUTE LYMPHOCYTES 0.6 thou/uL (0.8-5.3); ABSOLUTE MONOCYTES 0.7 thou/uL (0.0-1.2); ABSOLUTE NEUTROPHILS 8.3 thou/uL (1.6-8.1); BASOPHILS 0.3 %; LYMPHOCYTES 5.9 %; MCHC 32.7 g/dL (28.0-37.0); MCV 79.4 fL (80.0-100.0); MONOCYTES 7.4 %; MPV 7.6 fl. (7.2-11.1); NUCLEATED RBCS 0 /100WBC; PLATELET COUNT* 109 thou/uL (150-400); POLYS 86.4 %; RBC 2.48 mil/uL (4.50-6.00); RDW-CV 16.2 % (10.5-14.5); WBC 9.6 thou/uL (4.0-11.0)
[2020-04-09 05:51] LABS: HEMATOCRIT 19.7 % (42.0-52.0); HEMOGLOBIN 6.4 gm/dL (14.0-18.0)
[2020-04-09 05:53] LABS: CALCIUM 7.7 mg/dL (8.5-10.1); POTASSIUM 5.2 mmol/L (3.5-5.1)
[2020-04-09 05:54] LABS: PROTIME 46.1 Seconds (9.20-11.50)
[2020-04-09 06:01] LABS: INR 4.8
[2020-04-09 13:24] LABS: % SATURATION 37 % (20-39); IRON 66 ug/dL (50-175)
[2020-04-09 16:44] LABS: HEMATOCRIT 24.4 % (42.0-52.0); HEMOGLOBIN 8.1 gm/dL (14.0-18.0)
--- NOTE | 2020-04-09 18:40 | NUR ---
Pt remained A&O x4 for the entire shift. Pt was pleasant with staff. Pt received a unit of PRBC. Pt tolerated transfusion well. Vital signs stable through the entire shift. Pt denies any pain during shift. Will continue to monitor.
--- NOTE | 2020-04-10 02:45 | NUR ---
ASSUMED CARE FROM DAY SHIFT PT RESTING IN BED , C/O BUTTOCK SORENESS , PT REPOSITION IN BED AND PAIN MEDICATION GIVEN , HS SNACK EATEN TOLERATED WELL. DISCUSSED POC ,VERBALIZED UNERSTANDING AND AGREEABLE, SAT IS 94 ON 2L NS. PT RESTING WELL THROUGHOUT HOURLY ROUNDS. WILL REPORT CAHNGES OR ABNORMAL FINDINGS.
[2020-04-10 04:06] VITALS: BP 147/69
[2020-04-10 05:14] LABS: ABSOLUTE BASOPHILS 0.1 thou/uL (0.0-0.2); ABSOLUTE LYMPHOCYTES 0.8 thou/uL (0.8-5.3); ABSOLUTE MONOCYTES 0.8 thou/uL (0.0-1.2); ABSOLUTE NEUTROPHILS 11.2 thou/uL (1.6-8.1); BASOPHILS 0.4 %; EOSINOPHILS 0.1 %; HEMATOCRIT 26.6 % (42.0-52.0); HEMOGLOBIN 8.6 gm/dL (14.0-18.0); MCH 26.3 pg (26.0-34.0); MCHC 32.5 g/dL (28.0-37.0); MCV 80.9 fL (80.0-100.0); MONOCYTES 6.3 %; MPV 7.9 fl. (7.2-11.1); NUCLEATED RBCS 0 /100WBC; PLATELET COUNT* 113 thou/uL (150-400); POLYS 87.2 %; RBC 3.29 mil/uL (4.50-6.00); RDW-CV 16.5 % (10.5-14.5); WBC 12.8 thou/uL (4.0-11.0)
[2020-04-10 05:24] LABS: ALBUMIN 2.5 g/dL (3.4-5.0); CALCIUM 7.4 mg/dL (8.5-10.1); CREATININE 0.8 mg/dL (0.6-1.3); MAGNESIUM 2.2 mg/dL (1.8-2.4); POTASSIUM 4.7 mmol/L (3.5-5.1); TOTAL BILIRUBIN 1.7 mg/dL (<0.1-1.0)
[2020-04-10 05:31] LABS: PROTIME 32.5 Seconds (9.20-11.50)
[2020-04-10 05:55] LABS: INR 3.3
[2020-04-10 08:20] VITALS: BP 149/59
[2020-04-10 12:30] VITALS: BP 136/48
--- NOTE | 2020-04-10 14:05 | CON ---
[facility] [address] [place] [address] CONSULTATION Name: LEENA SALINAS Room: [address] M.R.#: [id number] Admission: 03/24/20 Attend Phys: Germain Dillon MD Discharge: Date of : 33 Report #: [id number] THIS REPORT FOR: //name// cc: Val Zepeda MD, Avan D. MD ~ DATE OF SERVICE: 04/09/2020 Please note at the time of this dictation, the patient was seen and physically examined by myself. REASON FOR CONSULTATION: Acute anemia. HISTORY OF PRESENT ILLNESS: This is an 84-year-old male who presented initially with chest discomfort, cough and progressive weakness. He had noticed that he had lost several pounds over the last several months and he had a nonproductive cough. At that time, he did test positive for COVID in the ER and has had multiple issues with his respiratory and CV status since that time. Initially when he was admitted, his hemoglobin was 12.6 and it is gradually began declining with a rapid decline on 04/04/2020, in which he went down to 8.2 from 10. There have been no signs of any overt bleeding, upper or lower GI. He had a bowel movement yesterday that was soft and formed, normal in color, per the patient and nurse. The patient did have a colonoscopy with us back in 2008 that showed diverticulosis and hemorrhoids, otherwise was negative. He was in recall for 2013. He has never had any upper scope done. The patient states that he has been taking ranitidine until it was pulled from the market and now is taking famotidine for his acid reflux, which he has been taking for years. ALLERGIES: INCLUDE MORPHINE, PROMETHAZINE, AND DEMEROL. MEDICATIONS FROM HOME: Include Crestor, hydrochlorothiazide, Nitrostat, Zestril, Coumadin. PAST MEDICAL HISTORY: Hyperlipidemia, CAD, hypertension, kidney stones, recovering alcoholic. PAST SURGICAL HISTORY: Coronary artery bypass surgery, history of stents with mitral valve replacement, cholecystectomy, umbilical hernia repair. FAMILY HISTORY: Brother, history of colon cancer. SOCIAL HISTORY: Past use of alcohol. Denies any former smoker of tobacco and denies any illegal drug use. REVIEW OF SYSTEMS: Twelve-point review of systems is essentially negative except what is [place] [address] CONSULTATION Name: LEENA SALINAS Room: [address]#: [id number] Admission: 03/24/20 Attend Phys: Germain Dillon MD Discharge: Date of : 33 Report #: [id number] PHYSICAL EXAMINATION: VITAL SIGNS: Temperature 36.7, pulse 64, respirations 18, blood pressure 141/42. HEART: Regular rate and rhythm with no murmur noted. LUNGS: Diminished, but clear. ABDOMEN: Soft, positive bowel sounds in all 4 quadrants with some slight epigastric tenderness noted to palpation. LABORATORY DATA: Hemoglobin this morning was 6.4, he is getting a unit of blood. White count is 9.6, platelets 109. PT is 46.1 and INR is 4.8, BUN is 47, creatinine is 1. IMPRESSION: 1. Anemia, acute. 2. Epigastric pain. 3. Gastroesophageal reflux disease, long history. 4. Thrombocytopenia. 5. Chronic obstructive pulmonary disease. 6. COVID. 7. Family history; brother, colon cancer. 8. Alcohol abuse, quit 20 years ago. PLAN: 1. We will monitor for any overt bleeding. 2. Transfuse for hemoglobin less than 7. 3. We will check labs; ferritin, iron studies, B12, soluble transferrin receptor. 4. Further recommendations to be made once Dr. Doherty sees the patient later today. Thank you for allowing us to participate in this patient's care. Please do not hesitate to call with any questions in regard to this consult. I agree with the above assessment and plan by Mónica Azul. I do not anticipate performing endoscopy unless the patient has overt signs of GI bleeding. <ELECTRONICALLY SIGNED> By: Jaison Doherty MD 04/10/20 1405 [id number] Doherty MD /nt
[2020-04-10 16:00] VITALS: BP 139/52
--- NOTE | 2020-04-10 18:32 | NUR ---
ASSESSMENT DOCUMENTED. MEDS GIVEN PER E-MAR. IV PATENT. PT ON 1L NC THIS SHIFT. PT EXPRESSES CONCERNS ABOUT GETTING BETTER AND GOING HOME. PAIN MEDS GIVEN PER E-MAR WITH RELIEF THIS SHIFT.
[2020-04-10 20:00] VITALS: BP 154/60
[2020-04-11] VITALS: BP 118/97
[2020-04-11 04:41] VITALS: BP 135/54
[2020-04-11 05:34] LABS: HEMATOCRIT 24.3 % (42.0-52.0); MCH 26.6 pg (26.0-34.0); MCHC 32.8 g/dL (28.0-37.0); MCV 81.2 fL (80.0-100.0); MPV 7.8 fl. (7.2-11.1); NUCLEATED RBCS 0 /100WBC; PLATELET COUNT* 106 thou/uL (150-400); RDW-CV 16.1 % (10.5-14.5); WBC 11.3 thou/uL (4.0-11.0)
[2020-04-11 05:51] LABS: PREALBUMIN 22.7 mg/dL (18.0-35.7)
[2020-04-11 05:52] LABS: ALBUMIN 2.3 g/dL (3.4-5.0); CALCIUM 7.2 mg/dL (8.5-10.1); CREATININE 0.9 mg/dL (0.6-1.3); POTASSIUM 4.9 mmol/L (3.5-5.1); TOTAL BILIRUBIN 1.4 mg/dL (<0.1-1.0); TOTAL PROTEIN 4.7 g/dL (6.4-8.2)
--- NOTE | 2020-04-11 06:20 | NUR ---
PATIENT SLEPT WELL DURING THIS SHIFT. PT IS UP WITH STANBY TO BATHROOM. PT VOIDS PER URINAL. PT ON O2 @ 1 LITER PER NASAL CANNULA. PT GIVEN NORCO 10/325 2 TABS AT HS FOR PAIN; DENIES PAIN AT THIS TIME. PT HAS CHRONIC AFIB. PT TAKES PILLS WHOLE IN PUDDING. PT DENIES NEEDS AT THIS TIME. FREQUENTLY USED ITEMS AND CALL LIGHT WITHIN REACH. SIDERAILS UPX2. WILL CONTINUE TO MONITOR.
[2020-04-11 07:11] LABS: ABSOLUTE LYMPHOCYTES 0.7 thou/uL (0.8-5.3); ABSOLUTE MONOCYTES 0.1 thou/uL (0.0-1.2); ABSOLUTE NEUTROPHILS 10.5 thou/uL (1.6-8.1); ANISOCYTOSIS 2+; METAMYELOCYTES 1 %; PLATELET ESTIMATE ADEQUATE
[2020-04-11 07:50] LABS: INR 2.3; PROTIME 23.6 Seconds (9.20-11.50)
[2020-04-11 08:00] VITALS: BP 133/86
[2020-04-11] MEDS ORDERED: NEXIUM40 MG PO (10:01)
[2020-04-11] MEDS ORDERED: LISINOPRIL20 MG PO (10:01)
[2020-04-11] MEDS ORDERED: PROCARDIA XL30 MG PO (10:01)
[2020-04-11] MEDS ORDERED: DEXAMETHASONE1 MG PO (10:02)
[2020-04-11 11:56] VITALS: BP 133/56
--- NOTE | 2020-04-11 16:30 | NUR ---
NOTED COVID NEGATIVE RESULT. CALLED AND SPOKE WITH ,ELISABETH ,ABOUT SNF AT DISCHARGE. NOW THAT HE IS NEG. SHE HAS MORE OPTIONS OF WHERE SHE WOULD LIKE HIM TO GO. SHE SAID HE WANTED TO GO WHERE SHE WAS LAST YEAR. SHE WAS AT [facility] [place]. FAXED REFERRAL TO [facility] [phone]. TOLD ELISABETH IT WOULD BE TUESDAY BEFORE HE WAS DICHARGED SNF WOULD NEED TO ACCEPT AND OBTAIN INSURANCE AUTH.
[2020-04-11 18:13] VITALS: BP 129/54
--- NOTE | 2020-04-11 19:35 | NUR ---
PT AO X4 RESTING IN BED AT TIMEOF ASSESSMENT. HE WAS ENCOURAGED TO GET TO CHAIR FOR MEALS AND DECLINED. APPETITE FAIR, PT HAD REPEAT COVID SWAB THAT RESULTED NEGATIVE FOR PLACEMENT TO REHAB/SKILLED. 1L O2 NC, USING URINAL
[2020-04-11 20:00] VITALS: BP 132/52
[2020-04-12] VITALS: BP 137/74
[2020-04-12 04:00] VITALS: BP 121/49
[2020-04-12 05:39] LABS: INR 1.9; PROTIME 19.1 Seconds (9.20-11.50)
--- NOTE | 2020-04-12 06:14 | NUR ---
ASSUMED CARE OF PT AFTER REPORT AT 1930. PT A&OX4. VSS. PHYSICAL ASSESSMENT COMPLETED AND CHARTED. PT ON O2 AT 1L NC. PT TRACING AFIB/ROLAND HR 30-50'S ON TELE. PT COMPLAINED OF RIGHT FLANK PAIN-MED GIVEN PER JUL. FALL PRECAUTIONS IN PLACE. CALL LIGHT WITHIN REACH.
[2020-04-12 08:00] VITALS: BP 146/55
[2020-04-12] MEDS ORDERED: JANTOVEN4 MG PO (09:21)
--- NOTE | 2020-04-12 11:03 | NUR ---
0730 ASSUMED CARE OF PATIENT. PLEASE SEE DOCUMENTED ASSESSMENT. NOTED PLAN OF CARE WITH Q2H TURNS AND IMPROVING NUTRITION.
[2020-04-12 12:00] VITALS: BP 116/47
--- NOTE | 2020-04-12 12:18 | NUR ---
PATIENT TRANSFERRED TO ROOM 116. TITRATED TO ROOM AIR. PT UPSET ABOUT NO VISITORS. CLARIFIED STATUS WITH [employer]PER[employer]. PT VERY WEAK WITH TRANSFER AND STANDING AT THIS TIME.
--- NOTE | 2020-04-12 15:33 | NUR ---
1400 TELEMETRY DISCONTINUED PER ORDER.
[2020-04-12 16:00] VITALS: BP 132/52
--- NOTE | 2020-04-12 18:00 | NUR ---
PT PROGRESSING TOWARDS GOALS. PT OUT OF ENHANCED PRECAUTIONS. OFF OF TELEMETRY. APPETITE IMPROVING. WOUND NOTED TO BUTTOCKS:PRESSURE VS EXCORIATION. WORKED WITH THERAPIES. WEAK WITH TRANSFERS. DISCHARGE ORDER NOTED. PATIENT STATES HE IS DISABLED AND NEEDS CERTAIN CRITERIA MET FOR TRANSFER TO REHAB/SKILLED. HOPES TO MOVE OFF OF COVID UNIT SO HE CAN HAVE VISITORS
[2020-04-12 20:00] VITALS: BP 127/41
[2020-04-13] VITALS: BP 146/49
--- NOTE | 2020-04-13 04:40 | NUR ---
ASSUMED CARE OF PT AFTER REPORT AT 1930. PT A&OX4. VSS. PHYSICAL ASSESSMENT COMPLETED AND CHARTED. PT ON RA. PT ON MEDSURG STATUS. PT COMPLAINED OF SACRAL PAIN-MED GIVEN PER JUL. PT TURNED TO SIDES. FALL PRECAUTIONS IN PLACE. PT ABLE TO SLEEP WELL ON BED. CALL LIGHT WITHIN REACH.
[2020-04-13 08:10] VITALS: BP 135/45
[2020-04-13 15:14] LABS: INR 1.9; PROTIME 19.8 Seconds (9.20-11.50)
--- NOTE | 2020-04-13 18:20 | NUR ---
PT A&OX4 VSS. PT REMAINS CONTINENT OF B/B, URINAL AT BEDSIDE. PT REPOSITIONED Q2H FOR SKIN INTEGRITY AND PT COMFORT. PRN PAIN MEDS ADMINISTERED REQUESTED. PT IS ACCUCHECK, INSULIN ADMINMISTERED INDICATED ON JUL. IV X2 LFA/RFA PATENT AND SALINE LOCKED. PT PREFERS GLUCERNA SHAKES WITH MEDS. PT WAITING FOR DC PLAN. PT ON RROM AIR, SAT GREATER THAN 94%. PT RESTING IN ROOM WITH CALL LIGHT AND PHONE IN REACH, WILL CONTINUE TO MONITOR
[2020-04-13 20:00] VITALS: BP 126/40
[2020-04-14 04:00] VITALS: BP 134/45
[2020-04-14 05:18] LABS: INR 2.2; PROTIME 22.5 Seconds (9.20-11.50)
--- NOTE | 2020-04-14 06:53 | NUR ---
ASSUMED CARE OF PT AFTER REPORT AT 1930. PT A&OX4. VSS. PHYSICAL ASSESSMENT COMPLETED AND CHARTED. PT ON RA. PT ON MEDSURG STATUS. PT COMPLAINED SACRAL PAIN-MED GIVEN PER JUL. PT TURNED TO SIDES. FALL PRECAUTIONS IN PLACE. CALL LIGHT WITHIN REACH.
[2020-04-14 07:50] VITALS: BP 150/51
--- NOTE | 2020-04-14 10:00 | NUR ---
SPOKE WITH [facility]. SHE SAID THEY CAN ACCEPT PT.MEDICALLY BUT TR[facility] TO SEE IF [facility] WILL [facility] FOR HIS SNF STAY OR IF IT WILL BE MEDICARE.
--- NOTE | 2020-04-14 14:00 | NUR ---
CALL FROM [facility]. SHE SAID THEY CAN TAKE PT.TOMORROW AM. [facility] 1100. CHART TO BE COPIED TO GO WITH PT. NURSING WILL NEED TO CALL REPORT TO [phone]. NOTIFIED AND ,ELISABETH.
--- NOTE | 2020-04-14 16:52 | NUR ---
PT A&OX4 VSS. PT REMAINS CONTINENT OF B/B. Q2H TURNS FOR COMFORT/SKIN INTEGRITY. PRN NORCO FOR PAIN. PT DECLINED MEDS AT 1630. PT STATED HE "WAS RIGHT WHERE HE NEEDS TO BE" AND SAID HE DIDN'T NEED MEDICATION. PT TOOK A NAP THIS AFTERNOON, RESTED WELL. PT ACCUCHECK, INSULIN ADMINISTERED DIRECTED. IVX2 LFA/RFA PATENT AND SALINE LOCKED. PT TAKES MEDS WITH GLUCERNA/SHAKES. PT TRANSPORTED TO 3RD FLOOR ON BED WITH ALL PERSONAL BELONGINGS. NO SIGNS OF DISTRESS. PT CONVERSING AND PLEASED AT TIME OF MOVE. WILL CONTINUE TO MONITOR.
--- NOTE | 2020-04-14 17:00 | NUR ---
PT TRANSFERED TO ROOM 305 AT THIS TIME. A&OX 4, PWD. LUNGS CLEAR, HEART TONES IRREGULAR, + BS X 4 QUADS. PEDAL PULSES PRESENT. NO EDEMA NOTED. BRUISING AND SCARS NOTED TO ARMS. SACRAL WOUND WITH DRESSING INTACT. PT TURNED TO RIGHT SIDE. PT C/O WEAKNESS AND NOT BEEN UP AND AROUND MUCH. WILL BE DISCHARGED TO [facility] TOMORROW FOR REHAB. SL RIGHT AND LEFT FOREARM. INTACT AND PATENT. DINNER BLOOD SUGAR 163 AND PT RECEIVED 8 UNITS LISPRO INSULIN. CALL LIGHT WITHIN REACH, BED ALARM PUT ON. WILL CONTINUE TO MONITOR.
[2020-04-14 17:16] VITALS: BP 119/41
[2020-04-14 20:00] VITALS: BP 131/78
[2020-04-15 04:47] LABS: INR 2.7; PROTIME 26.8 Seconds (9.20-11.50)
--- NOTE | 2020-04-15 05:37 | NUR ---
PT SLEPT OFF AND ON OVERNIGHT. RECEIVING PO PAIN MED AT HS WITH GOOD RESULT. DRSG CHANGED TO COCCYX THIS SHIFT, AOX4, FORGETFUL. PT TURNED AND REPOSITIONED Q2 HOURS AND PRN FOR SKIN CARE AND COMFORT. USING URINAL TO VOID, SMALL BM SMEAR OVERNIGHT,HEIDE CARE GIVEN AND BARRIER CREAM APPLIED. HS ACCUCHECK 163, INSULIN GIVEN ORDERED. AM LAB. ABLE TO USE CALL LITE AND MAKE NEEDS KNOWN.CALL LITE IN EASY REACH.
[2020-04-15 07:40] VITALS: BP 145/59
[2020-04-15 09:05] VITALS: BP 145/59
--- NOTE | 2020-04-15 09:31 | NUR ---
WOUND NURSE: PATIENT SEEN TO ADDRESS SKIN BREAKDOWN ON SACRAL AREA. AFFECTED AREA MEASURES 2.5 X 4.0 X 0.1 CM. PRESENTS WITH SHALLOW EROSION, SCANT SEROUSANGUINOUS DRANAGE, BLANCHEABLE RED INTACT PERIWOUND TISSUE. PATIENT IS ON A TURN SCHEDULE. PATIENT INSTRUCTED ON IMPORTANCE OF MAINTAINING CLEAN, DRY, PROTECTED SKIN; AND FREQUENT REPOSITIONING EVERY TWO HOURS. PATIENT STATES HE UNDERSTANDS.
--- NOTE | 2020-04-15 10:13 | NUR ---
PT.TO DISCHARGE THIS AM TO [facility] AT 1100 AM BY AMBULANCE. INFORMED AND NURSING. CM NOTIFIED YESTERDAY AFTERNOON. CONFIRMED WITH [facility] . FAXED DISCHARGE SUMMARY,PROGRESS NOTE FROM 04/14 AND DISCHARGE MEDS TO HER [phone].
--- NOTE | 2020-04-15 11:33 | NUR ---
PATIENT DISCHARGED TO [facility] FOR REHAB. IV'S DC'D. SACRAL WOUND CHANGED PER PROTOCOL AND WOUND PHOTO OBTAINED. PATIENT LEFT VIA EMS, ALL BELONGINGS SENT. REPORT CALLED TO MARCOS AT [facility].
== END 2020-04-15 11:35 | DRG 177 ==
LOC: M.ERS 15:59 → M.TBA-ER 19:14 → M.2W 19:14 → M.ORTHSURG 04-03 11:59 → M.3W 04-14 17:02
PROVIDERS: Family Medicine; Internal Medicine; Internal Medicine Cardiovascular Disease; Internal Medicine Critical Care Medicine; Nurse Practitioner Adult Health; Pediatrics; Physician Assistant; ADMIT Internal Medicine; ATTEND Internal Medicine
PROC: XW033E5 Introduction of Remdesivir Anti-infective into Peripheral Vein, Percutaneous Approach, New Technology Group 5 (ICD-10-PCS; principal; 2020-03-25)
PROC: XW13325 Transfusion of Convalescent Plasma (Nonautologous) into Peripheral Vein, Percutaneous Approach, New Technology Group 5 (ICD-10-PCS; 2020-03-28)
PROC: 5A09357 Assistance with Respiratory Ventilation, Less than 24 Consecutive Hours, Continuous Positive Airway Pressure (ICD-10-PCS; 2020-03-30)
PROC: 5A09357 Assistance with Respiratory Ventilation, Less than 24 Consecutive Hours, Continuous Positive Airway Pressure (ICD-10-PCS; 2020-03-31)
PROC: 5A09357 Assistance with Respiratory Ventilation, Less than 24 Consecutive Hours, Continuous Positive Airway Pressure (ICD-10-PCS; 2020-04-01)
PROC: 5A09357 Assistance with Respiratory Ventilation, Less than 24 Consecutive Hours, Continuous Positive Airway Pressure (ICD-10-PCS; 2020-04-02)
PROC: 5A09357 Assistance with Respiratory Ventilation, Less than 24 Consecutive Hours, Continuous Positive Airway Pressure (ICD-10-PCS; 2020-04-03)
PROC: 5A09357 Assistance with Respiratory Ventilation, Less than 24 Consecutive Hours, Continuous Positive Airway Pressure (ICD-10-PCS; 2020-04-04)
PROC: 5A09357 Assistance with Respiratory Ventilation, Less than 24 Consecutive Hours, Continuous Positive Airway Pressure (ICD-10-PCS; 2020-04-06)
PROC: 30233N1 Transfusion of Nonautologous Red Blood Cells into Peripheral Vein, Percutaneous Approach (ICD-10-PCS; 2020-04-09)
DX: U07.1 COVID-19 (principal); J15.6 Pneumonia due to other Gram-negative bacteria; J12.89 Other viral pneumonia; J96.90 Respiratory failure, unspecified, unspecified whether with hypoxia or hypercapnia; I48.20 Chronic atrial fibrillation, unspecified; J44.0 Chronic obstructive pulmonary disease with (acute) lower respiratory infection; D68.69 Other thrombophilia; N17.9 Acute kidney failure, unspecified; E78.5 Hyperlipidemia, unspecified; E86.0 Dehydration; E87.70 Fluid overload, unspecified; D64.9 Anemia, unspecified; K21.9 Gastro-esophageal reflux disease without esophagitis; D69.6 Thrombocytopenia, unspecified; F10.11 Alcohol abuse, in remission; M19.90 Unspecified osteoarthritis, unspecified site; I25.10 Atherosclerotic heart disease of native coronary artery without angina pectoris; I10 Essential (primary) hypertension; Z90.49 Acquired absence of other specified parts of digestive tract; Z95.4 Presence of other heart-valve replacement; Z95.1 Presence of aortocoronary bypass graft; Z79.01 Long term (current) use of anticoagulants; Z79.899 Other long term (current) drug therapy; Z88.8 Allergy status to other drugs, medicaments and biological substances; Z88.5 Allergy status to narcotic agent; Z87.891 Personal history of nicotine dependence; Z87.442 Personal history of urinary calculi